=== PATIENT | female | born 1995 | race Caucasian/White ===

== ENCOUNTER 2024-05-14 15:39 | Emergency (ER) | payer MEDICAID, SELFPAY ==
[2024-05-14 16:01] VITALS: BP 125/94; PULSE 94; RESP 18; TEMP 37; O2SAT 100; BMI 24.2
--- NOTE | 2024-05-14 16:01 | ED.GENADULT ---
HPI - General Adult General Chief complaint: Urogenital-Female Stated complaint: vaginal itchiness Related Data Allergies Allergy/AdvReac Type Severity Reaction Status Date / Time No Known Allergies Allergy Verified 05/14/24 16:04 [facility] Social History Social History Advance Directives: No Advance Directives Information Provided: No Do you have a plan to hurt others: No Plan Physical Exam ED Vital Signs: BMI result Body Mass Index 24.2 Course Course Course Narrative: This is a rapid medical exam performed by Maksim Oakley NP: Additional HPI, ROS, PE not included below will be deferred to primary provider. Patient is a 29-year-old female presenting with complaint of vaginal itching, states she was given an appoitment for the but can't wait that long. Denies pain or discharge. States she has a rash which is spreading to her legs. Symptoms x 4 days. Unable to visualize in triage due to privacy concerns. Denies recent intercourse. Denies fevers. Patient is awake, A+Ox3, in no acute distress, lungs clear throughout, RRR, ambulating independently with steady gait. Plan: will need pelvic exam, swabs ordered Discharge Plan Discharge Clinical Impression: Eloped from emergency department Patient Disposition: Left W/O Completing Treatment Discharge Date/Time: 05/14/24 21:43
== END 2024-05-14 21:43 | disposition left against medical advice (07) ==
LOC: HO.ED 21:41
PROVIDERS: Emergency Provider Emergency Medicine
DX: L29.2 Pruritus vulvae (principal)
CPT/HCPCS: 99281

== ENCOUNTER 2024-07-28 15:55 | Outpatient (REF) | payer MEDICAID, SELFPAY ==
--- NOTE | 2024-07-28 15:59 | PFT_ITS ---
Flows: FEV1: 98 % of predicted at 3.23 L FVC: 95 % of predicted at 3.75 L FEV1/FVC: 86 % Bronchodilator response: Absent Volumes: Total lung capacity: 87 % of predicted at 4.63 L Residual volume: 82 % of predicted at 1.00 L Slow vital capacity: 88 % of predicted at 3.64 L Expiratory reserve volume: 135 % of predicted at 1.83 L Diffusion capacity: Normal Impression: No obstructive or restrictive ventilatory defect. No bronchodilator response. Normal pulmonary function test. MTDD
[2024-07-28 16:34] VITALS: PULSE 78; O2SAT 100
--- OUTSIDE RECORDS SUMMARY | 2024-07-28 17:42 | XMS_ITS | Encounter Summary ---
Author Organization [employer] [facility] Address [address] 7[address] [place] [address] Care Team Providers Care Gold Layer Name Role Phone Gladys Rao MD Primary Care Provider + Encounter Details Date Type Department Care Team (Late st Contact Info) Description 07/23/2024 Population Health Risk Score [facility] ([facility] Department [address] [place] [address] [phone] Provider, Population Health Generic Social History Tobacco Use Types Packs/Day Years Used Date Smoking Tobacco: Never Passive Smoke Exposure: Never Smokeless Tobacco: Never Alcohol Use Standard Drinks/Week Comments Never 0 (1 standard drink = 0.6 oz pur e alcohol) Depression Answer Date Recorded Patient Health Questionnaire-9 Score 0 06/22/2024 Patient Health Questionnaire-9 Score 0 06/22/2024 Last PHQ-9: Questionnaire Data Not on file 0 06/22/2024 Housing Stability Answer Date Recorded What is your housing situation today? I have edy candelario 06/22/[address] you li ve. Do you have problems with any of the following? None of the above 06/22/2024 Food Insecurity Answer Date Recorded Within the past 12 months, y ou worried that your food would run out before you got money to buy more: Never True 06/10/2024 Within the past 12 months,th e food you bought just didn't last and you didn't have enough money to get more: Never True Transportation Answer Date Recorded In the past 12 months, has l ack of transportation kept you from medical appts, meetings, work or from getting things needed for daily living? No 06/10/2024 Utilities Answer Date Recorded In the past 12 months, has t he electric, gas, oil or water company threatened to shut off services in your home? No 06/10/2024 Depression Answer Date Recorded Patient Health Questionnaire-2 Score 0 06/22/2024 Internet Access Answer Date Recorded Internet Access Q1 Yes 06/10/2024 Internet Access Q2 Not on file 06/10/2024 Comments No Sex and Gender Information Value Date Recorded Sex Assigned at Female 05/17/2024 9:31 AM EST Legal Sex Female 12:54 PM EDT Gender Identity Female 05/17/2024 9:31 AM EST Sexual Orientation Straight 05/17/2024 9: 31 AM EST documented as of this encounter Plan of Treatment Upcoming Encounters Date Type Department Care Team (Late st Contact Info) Description 08/13/2024 10:45 AM EDT Procedure Visit [facility] [address] [place] [address] Gladys Rao MD [address] [place] [phone] documented as of this encounter Visit Diagnoses Not on filedocumented in this encounter Additional Health Concerns Assessment Noted Time PHQ-9 Depression Total Score: 0 06/22/19 9:37 AM EST documented as of this encounter Care Teams Gold Layer Relationship Specialty Start Date End Date Gladys Rao MD [address] [place] [phone] PCP - General Internal Medicine 05/17/24 documented as of this encounter
--- OUTSIDE RECORDS SUMMARY | 2024-07-28 17:42 | XMS_ITS | Clinical Summary ---
Author Organization [employer] Address [address] [place] [address] 7t [place] [address] Care Team Providers Care Fingernail Sculptor Name Role Phone Gladys Rao MD Primary Care Provider + Allergies No known active allergies Medications No known medications Active Problems Problem Noted Date Diagnosed Date Visual disturbance 06/22/2024 Assessment & Plan (06/22/2024 10:30 AM EST): Refer to eye clinic. Mild intermittent asthma without complication Assessment & Plan (06/22/2024 10:30 AM EST): Seems to be well controlled, will order PFTs. Agreed to Influenza immunization. FU at next appointment with symptoms diary and see if she needs additional treatment. Preventative health care 06/22/2024 Assessment & Plan (06/22/2024 10:29 AM EST): Will order blood work and schedule pap smear with me. Skin lesion 05/25/2024 Overview (05/25/2024): Likely Molluscum versus Warts - Frozen with Liquid Nitrogen 05/25/24 Assessment & Plan (05/25/2024 10:28 AM EST): Likely Molluscum versus Warts - Frozen with Liquid Nitrogen 05/25/24 Folliculitis depilans 05/17/2024 Assessment & Plan (06/22/2024 10:28 AM EST): Resolved. Assessment & Plan (05/17/2024 11:54 AM EST): Avoid shaving that are for at least 1 mo, avoid depilatory creams. Take Duricef x 5d Unprotected sexual intercourse 05/17/2024 Assessment & Plan (05/17/2024 11:54 AM EST): Advised to use condom with future new partners. Will do STI testing FU w new PCP Mastalgia 05/17/2024 Assessment & Plan (06/22/2024 10:30 AM EST): Most likely related to hormonal changes during menstruation, pt will take Ibuprofen PRN x 1 week prior to menstrual bleeding. Assessment & Plan (05/17/2024 11:56 AM EST): test is neg today Advised to keep sxs diary and fu with new PCP Encounters Date Type Department Care Team Description 07/23/2024 [address] Health Risk Score [facility] () Department [address] [place] [address] [phone] Provider, Population Health Generic 06/22/2024 9:30 AM EST Office Visit [facility] [address] [place] [phone] Gladys Rao MD Folliculitis depilans (Primary Dx); Mastalgia; Visual disturbance; Mild intermittent asthma without complication; Preventative health care; Encounter for immunization 06/22/2024 Travel 06/18/2024 Telephone [facility] [address] [place] [phone] Lindy Vilchis MA Chart prep 06/10/2024 Patient Outreach [facility] [address] [place] [phone] Gladys Rao MD Care Coordination (CHW outreach for SDOH housing search-referral completed ) 06/10/2024 Patient Outreach [facility] [address] [place] [phone] Gladys Rao MD Pre-visit Planning (SDOH screening negative and tobacco screening negative) 05/25/2024 9:20 AM EST Office Visit [facility] [address] [place] [phone] Babita Williamson MD Skin lesion (Primary Dx) 05/18/2024 Telephone [facility] [address] [place] [address] Audrey Mckinney RN 05/17/2024 10:40 AM EST Office Visit [facility] [address] [place] [address] Gladys Rao MD Folliculitis depilans (Primary Dx); Unprotected sexual intercourse; Mastalgia from Last 3 Months Immunizations Name Administration Dates Next Due Influenza, seasonal, injectable, preservative fr ee 06/22/2024 Tdap 06/22/2024 Social History Tobacco Use Types Packs/Day Years Used Date Smoking Tobacco: Never Passive Smoke Exposure: Never Smokeless Tobacco: Never Tobacco Cessation:Counseling Given: Not Answered Alcohol Use Standard Drinks/Week Comments Never 0 (1 standard drink = 0.6 oz pur e alcohol) Depression Answer Date Recorded Patient Health Questionnaire-9 Score 0 06/22/2024 Patient Health Questionnaire-9 Score 0 06/22/2024 Last PHQ-9: Questionnaire Data Not on file 0 06/22/2024 Housing Stability Answer Date Recorded What is your housing situation today? I have edyharshad candelario 06/22/[address] you [...] Orientation Straight 05/17/2024 9: 31 AM EST Last Filed Vital Signs Vital Sign Reading Time Taken Comments Blood Pressure 116/74 06/22/2024 9:36 AM EST Pulse 82 06/22/2024 9:36 AM EST Temperature 37.1 ??C (98.8 ??F) 06/22/2024 9:36 AM ES T Respiratory Rate 18 06/22/2024 9:36 AM EST Oxygen Saturation 100% 06/22/2024 9:36 AM EST Inhaled Oxygen Concentration - - Weight 69.3 kg (152 lb 12.8 oz) 06/22/2024 9:36 AM EST Height 165.1 cm (5' 5 ) 06/22/2024 9:36 AM EST Body Mass Index 25.43 06/22/2024 9:36 AM EST Plan of Treatment Upcoming Encounters Date Type Department Care Team (Late st Contact Info) Description 08/13/2024 10:45 AM EDT Procedure Visit [facility] [address] [place] [phone] Gladys Rao MD [address] [place] [address] Health Maintenance Due Date Last Done Comments Family Planning (PISQ) 2008 Hepatitis B Vaccines (1 of 3 - 19+ 3-dose series) 2012 Pneumococcal Vaccine: Pediatrics (0 to 5 Years) and At-Risk Patients (6 to 49) Years) (1 of 2 - PCV) 2012 Pap Smear 2014 Cervical Cancer Screening 2023 HPV/Cotest 2023 HPV Vaccines (2 - 3-dose SCD M series) 08/14/2023 07/17/2023 COVID-19 Vaccine ( - 2023-2 5 season) 2024 Alcohol/Substance Use Screening 06/22/2025 06/22/2024 Depression Screening 06/22/2025 06/22/2024, 06/22/2024 SDOH Screening 06/22/2025 06/22/2024 Tobacco Screening 06/22/2025 06/22/2024 DTaP/Tdap/Td Vaccines (2 - T d or Tdap) 06/22/2034 06/22/2024 Zoster Vaccines (1 of 2) 2043 RSV Patients and Patients Aged 60 years or older (1 - 1-dose 75+ series) 2068 HIV Screening Completed 05/17/2024 Hepatitis C Screening Completed 05/17/2024 Influenza Vaccine Completed 06/22/2024 HIB Vaccines Aged Out No longer eligi ble based on patient's age to complete this topic Hepatitis A Vaccines Aged Out No long er eligible based on patient's age to complete this topic IPV Vaccines Aged Out No longer eligi ble based on patient's age to complete this topic Meningococcal Vaccine Aged Out No rosalia karime eligible based on patient's age to complete this topic RSV under 20 months Aged Out No longe r eligible based on patient's age to complete this topic Rotavirus Vaccines Aged Out No longer eligible based on patient's age to complete this topic Procedures Procedure Name Priority Date/Time Associated Diagnosis Comments T-SPOT(R).TB Routine 05/17/2024 11:21 AM EST Unprotected sexual intercourse SYPHILIS SCREEN Routine 05/17/2024 11:21 AM EST Unprotected sexual intercourse HIV 1/2 ANTIGEN/ANTIBODY, FOURTH GENERATION W/RFL Routine 05/17/2024 11:21 AM EST Unprotected sexual intercourse HEPATITIS PANEL, GENERAL Routine 05/17/2024 11:21 AM EST Unprotected sexual intercourse POCT , URINE Routine 05/17/2024 10:58 AM EST Unprotected sexual intercourse CHLAMYDIA/N. GONORRHOEAE RNA, TMA, UROGENITAL Routine 05/17/2024 10:50 AM EST Unprotected sexual intercourse BACTERIAL VAGINOSIS PANEL Routine 05/17/2024 10:50 AM EST Unprotected sexual intercourse from Last 3 Months Results * Syphilis Screen (05/17/2024 11:21 AM EST) Syphilis Screen Nonreactive Nonreactive [facility] Blood 05/17/2024 11:2 1 AM EST 05/17/2024 1:45 PM EST Gladys Rao MD LAB BLOOD ORDERABLES Fin al Result [facility] [address] [place] [phone] * T-SPOT??.TB (05/17/2024 11:21 AM EST) Pathologist [facility] T Spot TB Negative Negative [facility] Comment:A negative test resu lt does not exclude the possibilityof exposure to or infection with Mycobacteriumtuberculosis (M. tuberculosis). Patients with recentexposure to TB infected individuals exhibiting anegative T-SPOT.TB result should be considered forretesting within 6 weeks or if other relevant clinicalsymptoms indicate. Results from T-SPOT.TB testing mustbe used in conjunction with each individual'sepidemiological history, current medical status,and results of other diagnostic evaluations.The T-SPOT.TB test is qualitative and results arereported as positive, borderline, or negative, giventhat the test controls perform as expected. In linewith the Centers for Disease Control and Prevention's2010 recommendation to report quantitative measurementsalongside the qualitative result, the laboratoryprovides spot counts for informational purposes only.The T-SPOT.TB test should not be interpreted as aquantitative test. TS PANEL A 1 [facility] TS PANEL B 1 [facility] Negative Control Passed [facility] Positive Control Passed [facility] Comment:For additional infor mation, please refer tohttp://education.[employer]/faq/VYT012(This link is being provided for informational/educational purposes only.)THIS TEST WAS PERFORMED AT:[facility] [id number] [place] [id number] PENA MD,PHD 05/17/2024 11:2 1 AM EST 05/17/2024 1:45 PM EST Gladys Rao MD LAB BLOOD ORDERABLES Fin al Result Performing Organization Address [facility] Co de Phone Number [facility] [address] [place] [phone] * Hepatitis Panel, General (05/17/2024 11:21 AM EST) Hepatitis A IgM Nonreactive Nonreactive [facility] Comment:IgM antibodies to IRWIN V not detected; does not exclude earlyacute or recovered HAV infection. ~Hepatitis B Surface Antibody NONREACTIVE Nonreactive [facility] Comment:Nonreactive: < 8.00 mIU/mL Hepatitis B Core Antibody Nonreactive Nonreactive [facility] Hepatitis C Antibody Nonreactive Nonreactive [facility] Comment:Antibodies to HCV no t detected; does not exclude early acuteHCV infection. Hepatitis B Surface Ag Negative Negative [facility] Blood 05/17/2024 11:2 1 AM EST 05/17/2024 1:45 PM EST Gladys Rao MD LAB BLOOD ORDERABLES Fin al Result Performing Organization Address [facility] de Phone Number [facility] [address] [place] [phone] * HIV-1/2 Antigen and Antibodies, Fourth Generation, with Reflexes (05/17/2024 11:21 AM EST) HIV AB/AG Nonreactive Nonreactive [facility] Comment:HIV-1 p24 Ag and/or HIV-1/HIV-2 Ab not detected.A test result that is nonreactive does not exclude thepossibility of exposure to or infection with HIV-1 and/orHIV-2. Nonreactive results in this assay for individualswith prior exposure to HIV-1 and/or HIV-2 may be due toantigen and antibody levels that are below the limit ofdetection of this assay.The Glam[employer] HIV Ag/Ab Combo assay result andsupplemental assay results should be interpreted inconjunction with the patient's clinical presentation,history and other laboratory results. If the results areinconsistent with clinical evidence, additional testing issuggested to confirm the result. Blood Venous blood specimen / Unknown 05/17/2024 11:21 AM EST 05/17/2024 1:45 PM EST Gladys Rao MD LAB BLOOD ORDERABLES Fin al Result [facility] [address] [place] [phone] * POCT , urine manually resulted (05/17/2024 10:58 AM EST) Preg Test, Ur Negative Negative, Indeterminate, None Detected, Invalid, Specimen unsatisfactory for evaluation, Weakly Positive Urine 05/17/2024 10:5 8 AM EST Gladys Rao MD POINT OF CARE TEST ENTER /EDIT ORDERABLES Final Result * (ABNORMAL) Bacterial Vaginosis (05/17/2024 10:50 AM EST) TRICHOMONAS VAGINALIS DETECTION BY PCR NOT DETECTED Not Detect [facility] BACTERIAL VAGINOSIS DETECTION BY PCR POSITIVE(A) Negative [facility] Comment:The BV organism targ ets of the Xpert Xpress MVP test can becommensal in women; Xpert Xpress MVP positive results forbacterial vaginosis should be considered in conjunction withother clinical and patient information to determine thedisease status. Organisms that are not detected by the XpertXpress MVP test have also been reported to be associatedwith BV and aerobic vaginitis.The Xpert Xpress MVP test performance has not been evaluatedin patients under the age of 14. TEA GROUP DETECTION BY PCR NOT DETECTED Not Detect [facility] Tea glab krusei PCR NOT DETECTED Not Detect [facility] Swab Vaginal structure / Unknown 05/17/2024 10:50 AM EST 05/17/2024 1:16 PM EST us Gladys Rao MD LAB MICROBIOLOGY - GENER AL ORDERABLES Final Result [facility] [address] [place] [phone] * Chlamydia/N. Gonorrhoeae RNA, TMA, Urogenitial (05/17/2024 10:50 AM EST) CT PCR NOT DETECTED Not Detect. [facility] Comment:A not detected test result does not exclude the possibilityof infection because test results can be affected byimproper specimen collection, concurrent antibiotic therapy,or the number of organisms in the specimen which may bebelow the sensitivity of the test. As with many diagnostictests, results from the Xpert CT/NG assay should beinterpreted in conjunction with other laboratory andclinical data available to the clinician.Xpert CT/NG performance has not been evaluated in patientsless than 14 years of age. The assay should not be used forthe evaluationof suspected sexual abuse or for other medico-legalindications. Additional testing is recommended in anycircumstance when false positive or false negative resultscould lead to adverse medical, social or psychologicalconsequences. NG PCR NOT DETECTED Not Detect. [facility] Comment:A not detected test result does not exclude the possibilityof infection because test results can be affected byimproper specimen collection, concurrent antibiotic therapy,or the number of organisms in the specimen which may bebelow the sensitivity of the test. As with many diagnostictests, results from the Xpert CT/NG assay should beinterpreted in conjunction with other laboratory andclinical data available to the clinician.Xpert CT/NG performance has not been evaluated in patientsless than 14 years of age. The assay should not be used forthe evaluationof suspected sexual abuse or for other medico-legalindications. Additional testing is recommended in anycircumstance when false positive or false negative resultscould lead to adverse medical, social or psychologicalconsequences. Swab (Vaginal Swab) 05/17/2024 10:50 AM EST 05/17/2024 1:16 PM EST Narrative [facility] - 05/17/2024 4:19 PM EST Vaginal Gladys Rao MD LAB MICROBIOLOGY - GENER AL ORDERABLES Final Result [facility] [address] [place] [phone] from Last 3 Months Insurance [employer] C3 Care Teams Fingernail Sculptor Relationship Specialty Start Date End Date Gladys Rao MD [address] [place] [phone] PCP - General Internal Medicine 05/17/24
--- OUTSIDE RECORDS SUMMARY | 2024-07-28 17:42 | XMS_ITS | Data Portability ---
Author Organization [facility] [place] [place] [facility] Address [address] [address] Assessment No assessment recorded. Plan of Treatment Reminders Order Date Submit Date Provider Last Modified By Organization Details Last Modified Time Details Appointments None record ed. Lab pregna ncy test, urine 2023 024 [facility], [address] [place], [address], 4 14:05:04 NG RNA, qual, PCR, unspec ified specim en 2023 024 OTTONIEL [facility], [address] [place], [address], 4 04:08:10 CT RNA, qual, PCR, unspec ified specim en 2023 024 OTTONIEL [facility], [address] [place], [address], 4 04:08:09 cytolo gy report , thin prep, smear or scrapi ng, cervic al or vagina l 2023 024 O[facility]EL [facility], [address] [place], [address], 4 04:07:42 pregna ncy test, urine 2023 024 OTTONIEL Fraser, [address] [place], [address], 4 15:54:14 urinal ysis, dipsti ck 2023 024 OTTONIEL Fraser, [address] [place], [address], 4 15:59:28 cultur e, urine 2023 024 [email or web address] [facility], [address] [place], [address], 4 14:01:01 CT RNA, qual, PCR, unspec ified specim en 2023 024 [email or web address] [facility], [address] [place], [address], 4 14:01:35 NG RNA, qual, PCR, unspec ified specim en 2023 024 [email or web address] [facility], [address] [place], [address], 4 14:02:04 tricho monas vagina lis RNA 2023 024 [email or web address] [facility], [address] [place], [address], 4 14:02:23 Referral gyneco logist referr al 2023 James [email or web address] [place] [facility], [address] [place], [address], 4 11:05:33 urolog ist referr al 2023 024 [email or web address] Ant Lowery MD, [address] [place], [address], 4 11:05:33 emerge ncy medici ne referr al - 28-yea r-old female presen ts for a 2-day histor y of lower abdomi nal pain with associ ated abnorm al vagina l bleedi ng and lower pelvic pain and fevers . Prior histor y of gonorr hea treate d with Roceph in. Pregna ncy test in house negati ve. Severe pain on palpat ion concer n for possib le ectopi c or kidney stone 2023 024 [email or web address] [facility], [address], [place], [address], 15:52:12 Procedures None record ed. Surgeries None record ed. Imaging US, pelvis , transa bdomin al + transv aginal - abnorm al uterin e bleedi ng 2023 024 [facility], [address] [place] [address], [address], 4 10:35:34 CT, abdome n + pelvis , w/ contra st - hematu sonia/lo wer abd pain, r/o kidney stone [address], [address], 4 10:35:24 Medication Orders predni solone acetat e 1 % eye drops, suspen joao [email or web address] [id number], [address] [place], [address], 4 11:04:25 Patient TargetsNo targets recorded. Patient Instructions Encounter Date Encounter Id Patient Instructions Last Modified By Organization Details Last Modified Time 06/02/2023 [id number] safer sex: care instructions Not available 06/02/2023 12:03:12 relaciones sexuales m? ? ?s seguras: instrucciones de cuidado - [safer sex: care instructions] Not available 06/02/2023 12:03:12 prueba de vih: instrucciones de cuidado - [HIV testing: care instructions] Not available 06/02/2023 12:03:12 HIV testing: car e instructions Not available 06/02/2023 12:03:11 07/09/2023 [id number] abnormal Pap sherry t: care instructions tmantle Not available 07/15/2023 18:05:11 HPV (human papillomavirus) vaccine: what you need to know tmantle Not available 07/09/2023 13:36:44 human papillomavirus (HPV): care instructions tmantle Not available 07/09/2023 13:36:44 07/17/2023 [id number] HPV (human papillomavirus) vaccine: what you need to know tmantle Not available 07/17/2023 08:36:48 Reason for Referral Emergency Medicine Referral for Abnormal uterine bleeding 28-year-old female presents for a 2-day history of lower abdominal pain with associated abnormal vaginal bleeding and lower pelvic pain and fevers. Prior history of gonorrhea treated with Rocephin. test in house negative. Severe pain on palpation concern for possible ectopic or kidney stone Referring Physician: Ibeth Jerome [facility], Encounter Date: 06/02/2023 Java Sdet Referral for Pa in in pelvis pelvic pain Referring Physician: Ibeth Jerome [facility], Encounter Date: 06/05/2023 Urologist Referral for Blood in urine hematuria Referring Physician: Ibeth Jerome [facility], Encounter Date: 06/05/2023 Results Created Date Observation Date Name Description Value Unit Range Abnormal Flag Note LastModifiedBy Organization Detail LastModifiedTime 06/02/19 24 06/03/2023 NO TEST INDIC ATED . Commen t A urine was recei serafin with no test indic ated Not Available [facility] ([facility]) [address], [place], [address], 06/03/2023 16:17:18 06/02/19 24 06/03/2023 NO TEST INDIC ATED dear doctor, Commen t The requi sitio n we recei serafin for the above patie nt has no test indic ated on the reque st form for one or more of the speci mens submi tted. [place] s requi res a writt en and kaveh d reque st be forwa rded to the testi ng labor atory follo wing the verba l order of a labor atory test. Date: ___ ICD Diagn osis Code( s):__ _ Physi britany or Autho rized Desig nee Signa ture: Your signa ture confi galina your order of the test( s) liste d Requi red test name( s):__ _ Requi red test numbe r(s): _ Pleas e provi de reque sted infor mateliecer n and fax to [phone] to exped ite testi ng. Not Available [facility] ([facility]) [address], [place], [address], 06/03/2023 16:17:18 06/02/19 24 06/08/2023 TRICH VAG BY NEO trich vag by NEO Negati ve negati ve Not Available [facility] ([facility]) [address] [facility] [address], [place], [address], 06/09/2023 04:06:32 06/02/19 24 06/04/2023 URINE CULTU RE, HAIR NE urine culture, routine Final report Not Available [facility] ([facility]) [address] [facility] [address], [place], [address], 06/09/2023 04:06:33 06/02/19 24 06/04/2023 URINE CULTU RE, HAIR NE result 1 No growth Not Available [facility] ([facility]) [address] [facility] [address], [place], [address], 06/09/2023 04:06:33 06/02/19 24 06/03/2023 CHLAM YDIA TRACH OMATI S, NEO chlamydia trachomatis, NEO Negati ve negati ve Not Available [facility] ([facility]) [address] [facility] [address], [place], [address], 06/09/2023 04:06:33 06/02/19 24 06/03/2023 NEISS ERIA GONOR RHOEA E, NEO neisseria gonorrhoeae, NEO Negati ve negati ve Not Available [facility] ([facility]) [address] [facility] [address], [place], [address], 06/09/2023 04:06:33 06/02/19 24 06/02/2023 urina lysis , dipst ick Leukocytes negati ve Not Available [address], [address], 06/02/2023 11:46:04 06/02/19 24 06/02/2023 urina lysis , dipst ick Nitrite negati ve Not Available [address], [address], 06/02/2023 11:46:04 06/02/19 24 06/02/2023 urina lysis , dipst ick Urobilinogen 0.2 Not Available [address], [address], 06/02/2023 11:46:04 06/02/19 24 06/02/2023 urina lysis , dipst ick Protein 100 Not Available [address], [address], 06/02/2023 11:46:04 06/02/19 24 06/02/2023 urina lysis , dipst ick pH 7.0 Not Available [address], [address], 06/02/2023 11:46:04 06/02/19 24 06/02/2023 urina lysis , dipst ick Blood large Not Available [address], [address], 06/02/2023 11:46:04 06/02/19 24 06/02/2023 urina lysis , dipst ick Specific Tyro 1.025 Not Available [address], [address], 06/02/2023 11:46:04 06/02/19 24 06/02/2023 urina lysis , dipst ick Ketone negati ve Not Available [address], [address], 06/02/2023 11:46:04 06/02/19 24 06/02/2023 urina lysis , dipst ick Bilirubin small Not Available [address], [address], 06/02/2023 11:46:04 06/02/19 24 06/02/2023 urina lysis , dipst ick Glucose negati ve Not Available [address] [place], [address], 06/02/2023 11:46:04 06/02/19 24 06/02/2023 urina lysis , dipst ick Appearance cloudy Not Available [facility] [address] [place], [address], 06/02/2023 11:46:04 06/02/19 24 06/02/2023 urina lysis , dipst ick Color red Not Available [address] [place], [address], 06/02/2023 11:46:04 06/02/19 24 06/02/2023 pregn weston test, urine HCG negati ve Not Available [address], [address], 06/02/2023 12:02:31 06/05/19 24 06/07/2023 URINE CULTU RE, ROUTI NE urine culture, routine Final report Not Available [facility] ([facility]) [address] [place], [address], 06/07/2023 04:08:31 06/05/19 24 06/07/2023 URINE CULTU RE, ROUTI NE result 1 COMMEN T Cultu re shows less than 10,00 0 colon y formi ng units of bacte sonia per aileen liter of urine . This colon y count is not gener ally consi dered to be clini magdalena signi fican t. Not Available [facility] ([facility]) [address] [place], [address], 06/07/2023 04:08:31 06/23/19 24 06/24/2023 CHLAM YDIA TRACH OMATI S, NEO chlamydia trachomatis, NEO Negati ve negati ve Not Available [facility] ([facility]) [address] [place], [address], 06/25/2023 04:08:09 06/23/19 24 06/24/2023 NEISS ERIA GONOR RHOEA E, NEO neisseria gonorrhoeae, NEO Negati ve negati ve Not Available [facility] ([facility]) [address] [facility] [address], [place], [address], 06/25/2023 04:08:09 06/23/19 24 06/24/2023 IGP, APTIM A HPV, RFX 16/18 ,45 HPV aptima Positi ve negati ve abnormal This nucle ic acid ampli ficat ion test detec ts fourt een high- risk HPV types (16,1 8,31, 33,35 ,39,4 5,51, 52,56 ,58,5 9,66, 68) witho ut diffe renti ation . Not Available [facility] ([facility]) [address] [facility] [address], [place], [address], 06/28/2023 04:07:42 06/23/19 24 06/26/2023 IGP, APTIM A HPV, RFX 16/18 ,45 interpretati on NILM NEGAT JORDY FOR INTRA EPITH ELIAL LESIO N OR MALIG LILIBETH . Not Available [facility] ([facility]) [address] [facility] [address], [place], [address], 06/28/2023 04:07:42 06/23/19 24 06/26/2023 IGP, APTIM A HPV, RFX 16/18 ,45 category: NIL Negat jordy for Intra epith elial Lesio n Not Available [facility] ([facility]) [address] [place], [address], 06/28/2023 04:07:42 06/23/19 24 06/26/2023 IGP, APTIM A HPV, RFX 16/18 ,45 infection: BVG PREDO MINAN CE OF COCCO BACIL LI CONSI STENT WITH SHIFT IN VAGIN AL REBECCA IS PRESE NT. Not Available [facility] ([facility]) [address] [place], [address], 06/28/2023 04:07:42 06/23/19 24 06/26/2023 IGP, APTIM A HPV, RFX 16/18 ,45 adequacy: SECNI Satis facto ry for evalu ation . No endoc ervic al compo nent is ident ified . Not Available [facility] ([facility]) [address] [place], [address], 06/28/2023 04:07:42 06/23/19 24 06/26/2023 IGP, APTIM A HPV, RFX 16/18 ,45 clinician provided ICD10: Ike molina Z12.4 Z11.3 Not Available [facility] ([facility]) [address] [place], [address], 06/28/2023 04:07:42 06/23/19 24 06/26/2023 IGP, APTIM A HPV, RFX 16/18 ,45 performed by: Ike ramsey, Cytot bell molina (ASCP ) Not Available [facility] ([facility]) [address] [place], [address], 06/28/2023 04:07:42 06/23/19 24 06/26/2023 IGP, APTIM A HPV, RFX 16/18 ,45 note: Ike molina The Pap smear is a scree patrick test desig hussein to aid in the detec tion of melquiades ligna nt and malig nant condi tions of the uteri ne cervi x. It is not a diagn ostic proce dure and shoul d not be used as the sole means of detec ting cervi gino cance r. Both false -posi tive and false -nega tive repor ts do occur . Not Available [facility] ([facility]) [address] [place], [address], 06/28/2023 04:07:42 06/23/19 24 06/26/2023 IGP, APTIM A HPV, RFX 16/18 ,45 test methodology: Ike Brasher liqui d based ThinP rep(R ) pap test was erika savage with the use of an image guide madonna yung Not Available [facility] ([facility]) [address] [facility] [address], [place], [address], 06/28/2023 04:07:42 06/23/19 24 06/26/2023 IGP, APTIM A HPV, RFX 16/18 ,45 HPV genotype reflex Commtadeo Zhaote sonia met, see HPV Genot ype resul ts. Not Available [facility] ([facility]) [address] [facility] [address], [place], [address], 06/28/2023 04:07:42 06/23/19 24 06/27/2023 IGP, APTIM A HPV, RFX 16/18 ,45 HPV genotype 16 Negati ve negati ve Not Available [facility] ([facility]) [address] [facility] [address], [place], [address], 06/28/2023 04:07:42 06/23/19 24 06/27/2023 IGP, APTIM A HPV, RFX 16/18 ,45 HPV genotype 18,45 Negati ve negati ve Not Available [facility] ([facility]) [address] [place], [address], 06/28/2023 04:07:42 06/23/19 24 06/23/2023 pregn weston test, urine HCG negati ve Not Available [place] [facility] [facility], [place], [address], 06/23/2023 09:38:41 Result Notes None recorded. 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 Active 2021 Myrna Elliott null, [facility] 4 18:21:39 Vaginal discharg e 193137813 Active 2021 Myrna grant, [facility] 4 18:21:39 Bilatera l pinguecu la of eyes 92059565533 9106 Active 2022 Myrna Elliott null, [facility] 4 18:21:39 Blood in urine 43625415 Active 2023 Myrna grant, [facility] 4 18:21:39 Abnormal uterine bleeding 38135008888 100 Completed 202306/23/2023 Removal Reason: resolved Myrna grant, [facility] 4 18:21:39 Pain in pelvis 06687868 Completed 202306/23/2023 Removal Reason: resolved Myrna grant, [facility] 4 18:21:39 Microsco pic hematuri a 610094797 Active 2023 Myrna grant, [facility] 4 18:21:39 Abnormal uterine bleeding 28905645237 100 Active 2023 Myrna grant, [facility] 4 18:21:39 Pain in pelvis 06530539 Active 2023 Myrna grant, [facility] 4 18:21:39 Human papillom a virus infectio n 360728922 Active 202306/23/23 pap NL, HPV+ recommen dation co-testi ng 12 months Myrna grant, [place] - [facility] 4 18:21:39 Abnormal cervical Papanico laou smear with human papillom avirus deoxyrib onucleic acid detected 246617760 Active 2023 Myrna grant, [facility] 18:21:39 Problem Notes None recorded. Procedures Surgical History Date Name Laterality Status Provider Name and Address Organization Details Recorded Time 06/23/19 24 Date of Last Pap Smear completed Angelika Yeung [facility] 07/09/2023 11:05:21 section completed [facility] 01/15/2023 14:22:22 Breast augmentation w/implt completed [facility] 01/15/2023 14:22:31 Imaging Results None recorded. Procedure Notes None recorded. Medical Equipment None Reported. Allergies No known drug allergies Medications Name Sig Start Date Stop Date Status Note LastModified by Organization Details LastModified Time doxycycline hyclate 100 mg capsule Take 1 capsule twice a day by oral route. 07/09 completed Not Available Not Available Not Available fluconazole 150 mg tablet Take 1 tablet by oral route. active Not Available Not Available No t Available hydrocodone 5 mg-acetamin ophen 325 mg tablet TAKE 2 TABLETS BY MOUTH EVERY 6 (SIX) HOURS IF NEEDED FOR SEVERE PAIN FOR UP TO 7 DAYS. 01/15 completed Not Available Not Available Not Available ondansetron HCl 4 mg tablet TAKE 1 TABLET BY MOUTH TWICE DAILY NEEDED FOR NAUSEA 01/15 completed Not Available Not Available Not Available ciprofloxac in 500 mg tablet TAKE 1 TABLET BY MOUTH TWICE DAILY FOR 7 DAYS 01/15 completed Not Available Not Available Not Available sulfamethox azole 800 mg-trimetho prim 160 mg tablet TAKE 1 TABLET BY MOUTH TWICE DAILY FOR 7 DAYS 01/15 completed Not Available Not Available Not Available ketorolac 10 mg tablet TAKE 1 TABLET BY MOUTH EVERY 6 HOURS NEEDED FOR PAIN 06/05 completed Not Available Not Available Not Available oxycodone-a cetaminophe n 5 mg-325 mg tablet TAKE 1 TO 2 TABLETS BY MOUTH EVERY 4 TO 6 HOURS NEEDED POST SURGERY PAIN 01/15 completed Not Available Not Available Not Available prednisolon e acetate 1 % eye drops,suspe nsion INSTILL 1 DROP INTO BOTH EYES 2 TIMES PER DAY FOR 1 WEEK 07/09 completed Not Available Not Available Not Available cephalexin 500 mg capsule TAKE 1 CAPSULE (500 MG TOTAL) BY MOUTH IN THE MORNING AT AT NOON AND BEFORE BEDTIME FOR 7 DAYS 01/15 completed Not Available Not Available Not Available neomycin-po lymyxin-dex ameth 3.5 mg/mL-10,00 0 unit/mL-0.1 % eye drops ADMINISTE R 1 DROP INTO BOTH EYES 4 TIMES A DAY FOR 10 DAYS. 01/15 completed Not Available Not Available Not Available ondansetron 4 mg disintegrat ing tablet TAKE 1 TABLET BY MOUTH EVERY 8 HOURS NEEDED FOR NAUSEA 07/09 completed Not Available Not Available Not Available naproxen 500 mg tablet active Not Available Not Available Not Available doxycycline 100mg capsule and topical skin cleanser no.19 06/02 completed Not Available Not Available Not Available ID NOW COVID-19 Test Kit TEST DIRECTED active Not Available Not Available No t Available Vitals Date Recorded Body height Body mass index (BMI) Body weight Body temperature Heart rate Respiratory rate Oxygen saturation Oxygen saturation in Arterial blood by Pulse oximetry Systolic blood pressure Diastolic blood pressure Provider Name and Address Organization Details Last Updated DateTime 4 165.1 cm 24.9 kg/m2 61349.0 6 g 97.7 [degF] 80 /min 16 /min 98 % 98 % 97 mm[Hg] 67 mm[Hg] Cristopher Ennisjudy [employer] 4 11:30:33 Date Recorded Body height Body mass index (BMI) Body weight Body temperature Heart rate Respiratory rate Oxygen saturation Oxygen saturation in Arterial blood by Pulse oximetry Systolic blood pressure Diastolic blood pressure Provider Name and Address Organization Details Last Updated DateTime 4 165.1 cm 24.8 kg/m2 55031.9 6 g 98.3 [degF] 74 /min 15 /min 98 % 98 % 100 mm[Hg] 73 mm[Hg] Francisco Godoy t [employer] 4 11:23:52 Date Recorded Body height Body mass index (BMI) Body weight Body temperature Heart rate Respiratory rate Oxygen saturation Oxygen saturation in Arterial blood by Pulse oximetry Systolic blood pressure Diastolic blood pressure Provider Name and Address Organization Details Last Updated DateTime 4 165.1 cm 24.9 kg/m2 94324.4 2 g 98.7 [degF] 81 /min 16 /min 99 % 99 % 115 mm[Hg] 80 mm[Hg] Angelika Yeung [place] [employer] 4 08:26:00 Date Recorded Body height Body mass index (BMI) Body weight Body temperature Heart rate Respiratory rate Oxygen saturation Oxygen saturation in Arterial blood by Pulse oximetry Systolic blood pressure Diastolic blood pressure Systolic blood pressure Diastolic blood pressure Provider Name and Address Organization Details Last Updated DateTime 4 165.1 cm 24.8 kg/m2 19704.2 6 g 97.9 [degF] 70 /min 16 /min 98 % 98 % 135 mm[Hg] 86 mm[Hg] 126 mm[Hg] 80 mm[Hg] [facility] [employer] [facility] 4 11:07:55 Date Recorded Body height Body mass index (BMI) Body weight Body temperature Heart rate Respiratory rate Oxygen saturation Oxygen saturation in Arterial blood by Pulse oximetry Systolic blood pressure Diastolic blood pressure Provider Name and Address Organization Details Last Updated DateTime 4 165.1 cm 24.9 kg/m2 84827.1 4 g 98.7 [degF] 73 /min 18 /min 95 % 95 % 104 mm[Hg] 70 mm[Hg] [facility] [employer] 4 09:11:47 Social History Question Answer Notes LastModified by Deep Ninesat ion Details LastModified Time Tobacco Smoking Status Never Smoker Francisco Irqa [place], [place] [employer] 06/05/2023 11:28:12 Do You Have An Advance Directive? No Information not available 01/15/2023 Is Your Home Air Conditioned? Yes Information not available 01/15/2023 What Is Your Level Of Alcohol Consumption? Occasional Information not available 06/05/2023 If You Are , What Was Your Level Of Alcohol Consumption Prior To ? None Information not available 01/15/2023 How Many Years Have You Consumed Alcohol? 7 Information not available 06/05/2023 Do You Wear A Helmet When Biking? No [email or web address] Information not available 01/15/2023 Are You Blind Or Do You Have Difficulty Seeing? No [email or web address] Information not available 01/15/2023 Is Blood Transfusion Acceptable In An Emergency? Yes [email or web address] Information not available 01/15/2023 What Is Your Level Of Caffeine Consumption? None Information not available 01/15/2023 Are You A Caregiver? Yes [email or web address] Information not available 01/15/2023 What Type Of Sales Office Manager Do You Use? None [email or web address] Information not available 01/15/2023 What Is Your Code Status? Full Code [email or web address] Information not available 06/02/2023 In The 14 Days Before Symptom Onset, Have You Had Close Contact With A Laboratory-confir med COVID-19 While That Case Was Ill? No [email or web address] Information not available 01/15/2023 In The 14 Days Before Symptom Onset, Have You Had Close Contact With A Person Who Is Under Investigation For COVID-19 While That Person Was Ill? No [email or web address] Information not available 01/15/2023 Have You Been To An Area Known To Be High Risk For COVID-19? No [email or web address] Information not available 01/15/2023 Are You Currently Employed? No [email or web address] Information not available 01/15/2023 Are You Deaf Or Do You Have Serious Difficulty Hearing? No [email or web address] Information not available 01/15/2023 What Type Of Diet Are You Following? REGULAR Information not available 01/15/2023 Do You Have A Directive To Physicians? No [email or web address] Information not available 01/15/2023 Which Illicit Or Recreational Drugs Have You Used? Marijuana [email or web address] Information not available 07/09/2023 What Is The Highest Grade Or Level Of School You Have Completed Or The Highest Degree You Have Received? [id number] [email or web address] Information not available 01/15/2023 Do You Have An Electrostatic Air Filter? No [email or web address] Information not available 01/15/2023 How Many Days Of Moderate To Strenuous Exercise, Like A Brisk Walk, Did You Do In The Last 7 Days? 3 [email or web address] Information not available 01/15/2023 On Those Days That You Engage In Moderate To Strenuous Exercise, How Many Minutes, On Average, Do You Exercise? 1 Information not available 01/15/2023 Have There Been Any Changes To Your Family Or Social Situation? No [email or web address] Information no t available 01/15/2023 What Is The Fluoride Status Of Your Home? Unknown [email or web address] Information not available 01/15/2023 Are There Any Guns Present In Your Home? No Information not available 01/15/2023 Which Of Your Hands Is Dominant? Right [email or web address] Information not available 01/15/2023 Do You Have A Humidifier? No [email or web address] Information not available 01/15/2023 How Many Years Have You Used Illicit Or Recreational Drugs? 9 [email or web address] Information not available 07/09/2023 Where Do You Live? SingleLevelHouse [email or web address] Information not available 01/15/2023 How Long Have You Lived There? Yrs [email or web address] Information not available 01/15/2023 Do You Have A Medical Power Of [employer]? No [email or web address] Information not available 01/15/2023 Do You Have Moisture Problems In Your Home? No [email or web address] Information not available 01/15/2023 What Was The Date Of Your Most Recent Tobacco Screening? 07/09/2023 [email or web address] Information not available 07/09/2023 How Many Children Do You Have? 2 [email or web address] Information not available 01/15/2023 Do You Have An Out Of Hospital DNR? No Information not available 01/15/2023 Do You Have Any Pets? Yes Cat [email or web address] Information not available 01/15/2023 Do You Use Protection During Sex? No [email or web address] Information not available 01/15/2023 What Is Your Relationship Status? Single [email or web address] Information not available 01/15/2023 Do You Use Your Seat Belt Or Car Seat Routinely? Yes [email or web address] Information not available 01/15/2023 Are You Sexually Active? Yes [email or web address] Information not available 01/15/2023 Do You Have Smoke And Carbon Monoxide Detectors In Your Home? No [email or web address] Information not available 01/15/2023 Are You Passively Exposed To Smoke? No [email or web address] Information no t available 01/15/2023 Are There Any Smokers In Your House? No [email or web address] Information not available 01/15/2023 How Much Tobacco Do You Smoke? No [email or web address] Information not available 01/15/2023 Do You Participate In Social Media? Yes [email or web address] Information not available 01/15/2023 What Types Of Sporting Activities Do You Participate In? N/a Information not available 01/15/2023 Do You Feel Stressed (tense, Restless, Nervous, Or Anxious, Or Unable To Sleep At Night)? [id number] Information not available 06/05/2023 Do You Use Any Illicit Or Recreational Drugs? Yes [email or web address] Information not available 07/09/2023 Do You Use Sunscreen Routinely? No Information not available 01/15/2023 Has Tobacco Cessation Counseling Been Provided? No [email or web address] Information not available 01/15/2023 Have You Recently Traveled Abroad? No [email or web address] Information not available 01/15/2023 Have You Used IV Drugs? No [email or web address] Information not available 07/09/2023 Are You Currently In School? No [email or web address] Information not available 01/15/2023 Do You Have Any Dietary Restrictions? No [email or web address] Information not available 01/15/2023 Do You Or Have You Ever Used Any Other Forms Of Tobacco Or Nicotine? No [email or web address] Information not available 01/15/2023 Sex: Female Functional Status Question Answer Note LastModified by Organizat ion Details LastModified Time Do you have difficulty walking or climbing stairs? No [email or web address] Information not available 01/15/2023 Do you have transportation difficulties? No [email or web address] Information not available 01/15/2023 Are you able to walk? YESWOREST [email or web address] Information not available 01/15/2023 Do you have difficulty doing errands alone? No [email or web address] Information not available 01/15/2023 Are you able to care for yourself? Yes [email or web address] Information not available 01/15/2023 Do you have difficulty dressing or bathing? No [email or web address] Information not available 01/15/2023 What is your exercise level? Moderate [email or web address] Information not available 01/15/2023 Mental Status Question Answer Note LastModified by Organization D etails LastModified Time Do you have difficulty concentrating, remembering or making decisions? No [email or web address] Information no t available 01/15/2023 Family History Relationship Description Onset Age of this Age Resolved Age Notes LastModified by Organization Details LastModified Time Father No current problems or disability [email or web address] Not available 07/16 18:21:38 Mother No current problems or disability [email or web address] Not available 07/16 18:21:38 Brother Type 1 diabetes mellitus [email or web address] Not available 05/13 11:25:53 Maternal Grandmother Malignant tumor of pharynx [email or web address] Not available 05/13 11:26:19 Paternal Grandfather Malignant neoplasm of brain [email or web address] Not available 05/13 11:26:43 Medical History Condition Response Asthma Y Gynecological History Statement/Question Response Abnormal Pap Y Flow Moderate Date of Last Mammogram Date of LMP 07/07/2023 On BCP's at Conception? N STIs/STDs N HPV Vaccine N Duration of Flow (days) 5 Current Control Method Tubal Ligat ion Age at Menarche 11 Age at First Child 16 Frequency of Cycle (Q days) 26 Sexually Active? Y Menses Monthly Y Date of Last Pap Smear 06/23/2023 Sexual Problems? N Obstetrics History GPAL:G 2 P 2 0 0 2 Type Value Full Term 2 Living 2 Total 2 Immunizations Vaccine Type Date Status Note Provider Owen goyal and Address Organization Details Recorded Time HPV9 07/17/2023 completed Nasrin Gonzales APRN [address] [place], [address], [facility] 07/17/2023 14:22:12 Past Encounters Encounter ID Performer Location Encounter Start Date Encounter Closed Date Diagnosis/Indication Diagnosis SNOMED-CT Code Diagnosis ICD10 Code Diagnosis Note [id number] Myrna Elliott [place] [address] [place] [address] 05/31/2021 08:13:50 05/31/2021 09:40:24 Aftercare 320849949 Z51.89 will request [facility] records Pain in pelvis 51703002 R10.2 will request Hp records, pelvic u/s done at the Candidiasis of vagina 72 946062 B37.3 Screening for malignant neoplasm of cervix 784747001 Z12.4 Vaginal discharge 647989 006 N89.8 Discussed the various types of STDs, related symptoms and the potential consequenc es (including effects on fertility) of STD infections . Reviewed ways to limit exposure and prevention techniques . Body mass index 30+ - obesity 888110436 Z68.37 Diet, nutrition, exercise & activity level discussed. [id number] RUBINA Dennyya [address] [place] [address] 01/15/2023 13:56:29 01/15/2023 14:56:35 Bilateral pinguecula of eyes 4743332212 12526 H11.153 Body mass index 25-29 - overweight 429349467 Z68.29 Encouraged maintenanc e of a healthy weight with diet and exercise. Dietary ma nagement surveillance 509980222 Z71.3 Heart Healthy Diet Exercises education, guidance, and counseling 417189942 Z71.82 Advised to aim for 150 minutes of moderate-i ntensity aerobic activity Depression screening 171 014966 Z13.31 Annual Depression Screening negative Screening for alcohol abuse 299827121 Z13.39 Annual Alcohol Screening negative Mental [facility] screening 843244945 Z13.39 Annual Anxiety Screening negative [id number] DENICE [place] [address] [place] [address] 06/02/2023 11:17:30 06/02/2023 12:08:13 Blood in urine 13766171 R31.9 Testing in office showed severe hematuria however no obvious sign of UTI. Differenti al includes kidney stone, ruptured ovarian cyst, fibroid, ectopic . I believe that STDs are less likely to cause this as she has already been treated with Rocephin and is currently on day 3 of 7 of doxycyclin e. The patient and I had an in-depth conversati on and I educated her that she most urgently needs a CT abdomen of her pelvis. There are no current labs in the chart and she would have to either repeat labs today to get a GFR or bring in labs done at her prior doctors office. I advised the patient to go into the bathroom to see if the blood was coming from the urine or from the vagina and she reports that it is coming from the vagina. Even though she did have her period on the second and ended on the sixth she has had unprotecte d sex in the last 2 weeks which means this could possibly be an ectopic even though her urine test was negative today. A referral for the emergency room was given to the patient and directions to the [facility] patient case sent to staff barry to call her within 24 to 48 hours to follow-up on her and schedule hospital follow-up visit if needed Abnormal u terine bleeding 8505880026 9100 N93.9 Care plan as follows below. Depression screening 171 925911 Z13.31 Depression screen reviewed. Results are negative. [id number] Ibeth Jerome PA-C [place] [address] [place] [address] 06/05/2023 11:17:36 06/05/2023 13:35:18 Pain in pelvis 34867364 R10.2 Care plan as follows below pending records from the emergency room Bilateral pinguecula of eyes [id number] 53996 H11.153 Care plan as follows below.Educ ated that the eyedrops are not to be used all the time and needs to follow-up with ophthalmol ogy further eval Blood in urine 10683306 R31.9 Advised to follow-up with urology as she went to the ER and no obvious cause of the bleeding was found. She continues to be unclear with her history whether this blood is coming from her bladder or from her vagina Depression screening 171 Z13.31 Depression screen reviewed. Results are negative. [id number] RUBINA Junior [facility] [address] [place] [address] 06/23/2023 07:58:04 06/23/2023 09:58:39 Screening for malignant neoplasm of cervix 248818957 Z12.4 PAP due Venereal d isease screening 230399254 Z11.3 ERIC Abnormal u terine bleeding 7112351394 9100 N93.9 resolved since treatment for gonorrhea in ER Pain in pelvis 18120545 R10.2 resolved since treatment for gonorrhea in ER [id number] RUBINA Junior [employer] [address] [place] [address] 07/09/2023 10:58:40 07/09/2023 12:03:11 Human papilloma virus infection 745915884 B97.7 Discussed having Gardasil vaccine and informatio n given on vaccine. Can schedule appointmen t if she wants to start vaccine series. Abnormal c ervical Papanicolaou smear with human papillomavirus deoxyribonucleic acid detected 565115167 R87.619 Discussed pathophysi ology of cervical cancer, including risks of HPV. Discussed different strains of HPV, including high risk vs low risk strains. Discussed different types of cervical pathology, including pathophysi ology. Discussed recommenda tion of repeating PAP smear in 1 year. [id number] RUBINA Junior [employer] [address] [place] [address] 07/17/2023 08:07:32 07/17/2023 09:27:06 Abnormal cervical Papanicolaou smear with human papillomavirus deoxyribonucleic acid detected 287147147 R87.619 Will start Gardasil vaccine Health Concerns Section Related Observation LastModified by Organization Detai ls LastModified Time None Recorded Concern Status LastModified by Organization Details LastModified Time None Recorded Advance Directives Directive N: Payers Encounter Date Sequence Insurance Name Policy Number Policy Landa Covered Member ID Landa Member ID Guarantor Name 06/02/2023 1 [facility] (MEDICAID REPLACEMENT - HMO) Adeline Zamorano [id number] Adeline Zamorano 06/05/2023 1 [facility] (MEDICAID REPLACEMENT - HMO) Adeline Zamorano [id number] Adeline Zamorano 06/23/2023 1 [facility] (MEDICAID REPLACEMENT - HMO) Adeline Zamorano [id number] Adeline Zamorano 07/09/2023 1 [facility] (MEDICAID REPLACEMENT - HMO) Adeline Zamorano [id number] Adeline Zamorano 07/17/2023 1 [facility] (MEDICAID REPLACEMENT - HMO) Adeline Zamorano [id number] Adeline Zamorano Notes Date Note Type Note Provider Name and Address Organization Details Recorded Time 06/02/2023 text/html 28-year-old ze porter presents for a 2-day history of lower abdominal pain. She reports that she has recently been treated for gonorrhea as her partner tested positive for it. She is given an injection of Rocephin then given some doxycycline afterwards. Since then she reports having persistent lower abdominal pain. She does report having unprotected sex within the last 2 weeks. Last period was May 13 she does report some associated fevers. This morning she woke up in mild pain however now she reports is worsening pain and rates it 07/19Daflorentino Jerome PA-C [address] [place], [address], [facility] 06/02/2023 12:53:03 06/05/2023 text/html 28-year-old ze porter presents for hospital follow-up. She went to the ER after her visit this week in the office. She reports that an ultrasound was done and several things of testing however no cause for the uterine bleeding was found. She was told to follow-up with [facility] and finish her doxycycline. She reports still continuing to bleed. However it is off-and-on. She reports that she was at the ER she was bleeding all down her legs and was told to follow-up with [facility]. She denies any pain at this time but does have intermittent pain that is mostly along the left side of her abdomen. She also would like a refill on her eyedrops for her pingueculaDaisy Jerome DENICE Jerome PA-C [address] [place], [address], [facility] [employer] 06/05/2023 12:42:47 06/23/2023 text/html Here for pelvic pain and abnormal uterine bleeding from PCP. She was treated for Gonorrhea approximately 3 weeks ago in the ER after being told her partner was positive. Her symptoms have since resolved. Nasrin Gonzales MSN, CASE WORKER, FRENCH Gonzales APRN [address] [place], [address], [facility] [employer] 06/23/2023 14:05:41 07/09/2023 text/html Abnormal Pap SmearReported bypatient.Onset/Tyrone ing:pap smear performed on: (06/23/23); first abnormal pap Quality:pap smear results: (HPV+ : not 16, 18/45) Context:has not had HPV vaccine; no KIA exposure Associated Symptoms:no vaginal/vulvar pain; no vulvar lesions/growths; no vaginal discharge; no postcoital bleeding; no dyspareunia Here for PAP results. FABIANA Ren, CASE WORKER, [employer] Nasrin Gonzales APRN [address] [place], [address], [place] [facility] [employer] 07/15/2023 18:05:14 07/17/2023 text/html 28 year old feml e patient presents today for the HPV vaccine.//Joanne Madridsa Christian, CASE WORKER [address], [place], [address], [facility] [employer] 07/17/2023 14:22:15 OBGyn Episode Ob Episode Information Episode Created Date Number of Fetuses Patient Bloodtype Patient rh Status Prepregnancy Weight lbs Domestic Partner Domestic Partner Phone Father Name Custom Clothier Status 06/23/19 24 1 CLOSED Fetus Data First Name Last Name Admitted to NICU Weight (g) Sex Living Outcome Pediatric Complications Fetus ID Race Codes Race Delivery Type F Full Term [id number] Section Stephon Calculation Initial Stephon Date Initial Exam Date Initial Exam Provider Initial Ultrasound Date Last Menstrual Period Date Ultra Sound Weeks Gestation 0 Eighteen To Twenty Week Stephon Update Ultra Sound Date Fundal Height At Umbil Quickening Date Ultra Sound Latest Weeks Gestation Final Stephon Confirmed By Final Stephon Confirmed Date Final Stephon Date Ultra Sound Latest Days Gestation 0 0 Menstrual History Last Menstrual Date Menses Monthly On Bcp Conception Prior Menses Frequency Hcg Plus Date Menarche Onset Age Delivery Information Delivery Date Delivery Type Labor Anesthesia Weeks Gestation Incision Type Labor Labor Length Hrs Delivered By Post Complications Tubal Sterilization Discharge Date Comments 1 Discharge Information Feeding Method Contraceptive Method Maternal HG B and HCT Levels Ob Episode Information Episode Created Date Number of Fetuses Patient Bloodtype Patient rh Status Prepregnancy Weight lbs Domestic Partner Domestic Partner Phone Father Name Custom Clothier Status 06/23/19 24 1 CLOSED Fetus Data First Name Last Name Admitted to NICU Weight (g) Sex Living Outcome Pediatric Complications Fetus ID Race Codes Race Delivery Type M Full Term [id number] Repeat Section Stephon Calculation Initial Stephon Date Initial Exam Date Initial Exam Provider Initial Ultrasound Date Last Menstrual Period Date Ultra Sound Weeks Gestation 0 Eighteen To Twenty Week Stephon Update Ultra Sound Date Fundal Height At Umbil Quickening Date Ultra Sound Latest Weeks Gestation Final Stephon Confirmed By Final Stephon Confirmed Date Final Stephon Date Ultra Sound Latest Days Gestation 0 0 Menstrual History Last Menstrual Date Menses Monthly On Bcp Conception Prior Menses Frequency Hcg Plus Date Menarche Onset Age Delivery Information Delivery Date Delivery Type Labor Anesthesia Weeks Gestation Incision Type Labor Labor Length Hrs Delivered By Post Complications Tubal Sterilization Discharge Date Comments 5 Discharge Information Feeding Method Contraceptive Method Maternal HG B and HCT Levels
== END 2024-07-28 15:56 | disposition home or self-care (01) ==
LOC: HO.RESP 15:55
PROVIDERS: PCP Internal Medicine; Visit Provider Internal Medicine
DX: J45.20 Mild intermittent asthma, uncomplicated (principal)
CPT/HCPCS: 94010; 94640; 94727; 94729

== ENCOUNTER → 2024-07-28 15:59 | Outpatient (BNV) | payer MEDICAID, SELFPAY | PROVIDERS: PCP Internal Medicine; Visit Provider Internal Medicine Pulmonary Disease | DX: J45.20 Mild intermittent asthma, uncomplicated (principal) | CPT/HCPCS: 94060; 94727; 94729 ==

== ENCOUNTER 2024-09-16 15:51 | Emergency (ER) | payer OTHER, SELFPAY ==
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
[2024-09-16 16:27] VITALS: BP 123/79; BP 128/84; PULSE 84; PULSE 86; RESP 18; TEMP 36.6; O2SAT 96; O2SAT 99; BMI 24.1
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
--- OUTSIDE RECORDS SUMMARY | 2024-09-16 17:04 | XMS_ITS | Clinical Summary ---
Author Organization [employer] Address [address] [place] [address] Care Team Providers Care Paraffiner Name Role Phone Gladys Rao MD Primary [...] Encounters Date Type Department Care Team Description 08/13/2024 Telephone [facility] [address] [place] [phone] Gladys Rao MD No Show 07/23/2024 Population Health Risk Score Community Care [facility] ([facility] Department [address] [place] [address] [phone] Provider, Population Health Generic 06/22/2024 9:30 AM EST Office Visit [facility] [address] [place] [address] Gladys Rao MD Folliculitis depilans (Primary Dx); Mastalgia; Visual disturbance; Mild intermittent asthma without complication; Preventative health care; Encounter for immunization 06/22/2024 Travel from Last 3 Months Immunizations Name Administration [...] Care Team (Late st Contact Info) Description 10/05/2024 2:30 PM EDT Office Visit [facility] [address] [place] [address] Nubia Maddox, OD [address] [place] [address] Health Maintenance Due Date Last Done Comments Family Planning (PISQ) 2008 Hepatitis B Vaccines (1 of 3 - 19+ 3-dose series) 2012 Pneumococcal Vaccine: Pediatrics (0 to 5 Years) and At-Risk Patients (6 to 49) Years) (1 of 2 - PCV) 2012 Pap Smear 2014 Cervical Cancer Screening 2023 HPV/Cotest 2023 HPV Vaccines (2 - 3-dose SCD M series) 08/14/2023 07/17/2023 COVID-19 Vaccine (1 - 2023-2 5 season) 2024 Alcohol/Substance Use [...] Procedure Name Priority Date/Time Associated Diagnosis Comments HEPATITIS PANEL, GENERAL Routine 05/17/2024 11:21 AM EST Unprotected sexual intercourse HIV 1/2 ANTIGEN/ANTIBODY, FOURTH GENERATION W/RFL Routine 05/17/2024 11:21 AM EST Unprotected sexual intercourse from Last 3 Months or Most Recently Relevant to Health Maintenance Results * Hepatitis Panel, General (05/17/2024 11:21 AM EST) Hepatitis A IgM Nonreactive Nonreactive [facility] Comment:IgM antibodies to IRWIN V not detected; does not exclude earlyacute or recovered HAV infection. ~Hepatitis B Surface Antibody NONREACTIVE Nonreactive [facility] Comment:Nonreactive: < 8.00 mIU/mL Hepatitis B Core Antibody Nonreactive Nonreactive [facility] Hepatitis C Antibody Nonreactive Nonreactive [facility] Comment:Antibodies to HCV no t detected; does not exclude early acuteHCV infection. Hepatitis B Surface Ag Negative Negative [facility] Blood 05/17/2024 11:2 1 AM EST 05/17/2024 1:45 PM EST us Gladys Rao MD LAB BLOOD ORDERABLES Fin al Result [facility] [address] [place] [phone] * HIV-1/2 Antigen and Antibodies, Fourth Generation, with Reflexes (05/17/2024 11:21 AM EST) HIV AB/AG Nonreactive Nonreactive [facility] Comment:HIV-1 p24 Ag and/or HIV-1/HIV-2 Ab not detected.A test result that is nonreactive does not exclude thepossibility of exposure to or infection with HIV-1 and/orHIV-2. Nonreactive results in this assay for individualswith prior exposure to HIV-1 and/or HIV-2 may be due toantigen and antibody levels that are below the limit ofdetection of this assay.The [employer]Rx HIV Ag/Ab Combo assay result andsupplemental assay results should be interpreted inconjunction with the patient's clinical presentation,history and other laboratory results. If the results areinconsistent with clinical evidence, additional testing issuggested to confirm the result. Blood Venous blood specimen / Unknown 05/17/2024 11:21 AM EST 05/17/2024 1:45 PM EST Gladys Rao MD LAB BLOOD ORDERABLES Fin al Result [facility] [address] [place] [phone] [phone] from Last 3 Months or Most Recently Relevant to Health Maintenance Insurance [employer] Care Teams Paraffiner Relationship Specialty Start Date End Date Gladys Rao MD [address] [place] [phone] PCP - General Internal Medicine 05/17/24
[2024-09-16] MEDS: Ibuprofen 800 MG TABLET PO (18:50)
[2024-09-16 19:24] VITALS: BP 100/71; PULSE 71; RESP 16; TEMP 36.6; O2SAT 100
== END 2024-09-16 19:25 | disposition home or self-care (01) ==
PROVIDERS: Emergency Provider Emergency Medicine; PCP Internal Medicine
DX: S13.9XXA Sprain of joints and ligaments of unspecified parts of neck, initial encounter (principal); V43.62XA Car passenger injured in collision with other type car in traffic accident, initial encounter; R51.9 Headache, unspecified; Y93.89 Activity, other specified; Y92.414 Local residential or business street as the place of occurrence of the external cause; Y99.9 Unspecified external cause status
CPT/HCPCS: 70450; 72125; 99284

== ENCOUNTER → 2024-09-16 16:36 | Outpatient (BNV) | payer MEDICAID, SELFPAY | PROVIDERS: Emergency Provider Emergency Medicine; PCP Internal Medicine; Visit Provider Radiology Diagnostic Radiology | DX: M54.2 Cervicalgia (principal); V89.2XXA Person injured in unspecified motor-vehicle accident, traffic, initial encounter | CPT/HCPCS: 70450; 72125 ==

== ENCOUNTER 2024-11-05 13:01 | Outpatient (REF) | payer OTHER, SELFPAY ==
[2024-11-05 14:20] LABS: Bacterial Vaginosis PCR POSITIVE (Negative); Candida Group PCR DETECTED (Not Detect); Candida glab krusei PCR NOT DETECTED (Not Detect); Trichomonas vaginalis PCR NOT DETECTED (Not Detect)
[2024-11-05 14:52] LABS: CT PCR NOT DETECTED (Not Detect.); NG PCR NOT DETECTED (Not Detect.)
== END 2024-11-05 13:02 | disposition home or self-care (01) ==
LOC: HO.HHCLNP 13:01
PROVIDERS: Visit Provider Internal Medicine
DX: R30.0 Dysuria (principal); R35.0 Frequency of micturition; N89.8 Other specified noninflammatory disorders of vagina
CPT/HCPCS: 81515; 87086; 87147; 87491; 87591

== ENCOUNTER 2024-12-06 14:47 | Outpatient (REF) | payer OTHER, SELFPAY ==
--- OUTSIDE RECORDS SUMMARY | 2024-11-30 13:45 | XMS_ITS | Encounter Summary ---
Author Organization [employer] [facility] Address [address] [facility] 7[address] [place] [address] Care Team Providers Care Log Cutter Name Role Phone Gladys Rao MD Primary Care Provider + Reason for Referral * Consultation (Urgent) - Closed Specialty Diagnoses / Procedures Referred By Joshua molina Referred To Contact Reproductive Endocrinology and Infertility Diagnoses Procreative management Lisbeth Holman CNM [address] [place] [address] Phone: tel: fax: Reproductive Medicine[address] Phone: tel: fax: Referral ID Status Reason Start Date Expiration Date V isits Requested Visits Authorized [id number] Closed Specialty Services Required 11/30/2024 11/30/2025 1 1 Reason for Visit * Reason Comments pap Encounter Details Date Type Department Care Team (Latest Contact Info) Description 11/30/2024 1:45 PM EDT Procedure Visit [facility] [address] [place] [address] [phone] Lisbeth Holman CNM [address] [place], [place] [phone] Cervical cancer screening (Primary Dx); Procreative management Social History Tobacco Use Types Packs/Day Years [...] Q2 Not on file 06/10/2024 Comments No Intention Date Recorded Wants to become (finding) 11/30 Sex and Gender Information Value Date Recorded Sex Assigned at Female 05/17/2024 9:31 AM EST Legal Sex Female 12:54 PM EDT Gender Identity Female 05/17/2024 9:31 AM EST Sexual Orientation Straight 05/17/2024 9: 31 AM EST documented as of this encounter Last Filed Vital Signs Vital Sign Reading Time Taken Comments Blood Pressure 108/70 11/30/2024 1:20 PM EDT Pulse 75 11/30/2024 1:20 PM EDT Temperature 37.1 C (98.7 F) 11/30/2024 1:20 PM EDT Respiratory Rate 14 11/30/2024 1:20 PM EDT Oxygen Saturation 99% 11/30/2024 1:20 PM EDT Inhaled Oxygen Concentration - - Weight 77 kg (169 lb 12.8 oz) 11/30/2024 1:20 PM EDT Height - - Body Mass Index 26.81 11/05/2024 10:26 AM EDT documented in this encounter Progress Notes * Lisbeth Holman CNM - 11/30/2024 1:45 PM EDT Subjective Patient ID: Adeline Zamorano is a 29 y.o. female who presents for pap. She denies any vaginal urinary or breast concerns today. She reports that she was treated for bv/yeast last month, she reports symptoms have completely resolved. Visit by TERRI Wallace. I served as food and beverage analyst for exam. LMP approx 11/02/24. Menses began today. Periods are regular and painless. She is currently sexually active with AMAB partner. Denies pain or bleeding with sex. Declines STI screening today. She is seeking . However she reports after her last child she believes shehad tubal in [place], which her mother signed consent for. No records available. She reports she is interested in having an evaluation done to determine her ability to get . Not currently using contraception. She has 2 children. Denies any family hx of ovarian, breast, uterine or colon cancer. Review of Systems Constitutional: Negative for chills and fever. Gastrointestinal: Negative for abdominal pain, blood in stool, constipation, diarrhea, nausea and vomiting. Genitourinary: Negative for decreased urine volume, dyspareunia, dysuria, frequency, genital sores,hematuria, menstrual problem, pelvic pain, urgency, vaginal bleeding, vaginal discharge and vaginalpain. Objective BP 108/70 (BP Location: Left arm, Patient Position: Sitting, BP Cuff Size: Adult) Pulse 75 Temp98.7 ??F (37.1 ??C) (Oral) Resp 14 Wt 169 lb 12.8 oz (77 kg) LMP 11/30/2024 (Approximate) SpO2 99% BMI 26.81 kg/m?? Physical Exam Exam conducted with a food and beverage analyst present (Lisbeth Holman CNM). Constitutional: Appearance: Normal appearance. Chest: Comments: Breast exam declined by pt today Genitourinary: Vagina: No signs of injury and foreign body. Bleeding present. No vaginal discharge, erythema, tenderness, lesions or prolapsed vaginal rader. Cervix: Normal. No cervical motion tenderness, discharge, friability, lesion, erythema, cervical bleeding or eversion. Uterus: Normal. Not deviated, not enlarged, not fixed, not tender and no uterine prolapse. Adnexa: Right adnexa normal and left adnexa normal. Rectum: Normal. Comments: +bleeding consistent with menses. Neurological: Mental Status: She is alert. Psychiatric: Mood and Affect: Mood normal. Behavior: Behavior normal. Assessment/Plan Problem List Items Addressed This Visit None Visit Diagnoses Cervical cancer screening - Primary Relevant Orders Pap Smear Normal physical exam today, breast exam declined. Pt declines STI screening, she just had recent testing. If results are normal pap due in 5 years Procreative management Relevant Orders Referral to Infertility Today we discussed potential evaluation for fertility. Plan to refer to repro endo for HSG, pt agreeable to plan and made aware of insurance limitations. We will await evaluation with repro endo before starting PNV. Advised her to have her partner check his infertility benefits as he has health insurance from his employer. F/u prn for new or worsening conditions documented in this encounter Plan of Treatment Scheduled Orders Name Type Priority Associated Diagnoses Orde r Schedule Pap Smear Pathology and Cytology Routine Cervical cancer screening Ordered: 11/30/2024 Scheduled Referrals Name Type Priority Associated Diagnoses Order Schedule Referral to Infertility Outpatient Referral Urgent Procreative management Expected: 11/30/2024 (Approximate), Expires: 11/30/2025 documented as of this encounter Visit Diagnoses Diagnosis Cervical cancer screening- Primary Screening for malignant neoplasm of the cervix Procreative management documented in this encounter Additional Health Concerns Assessment Noted Time PHQ-9 Depression Total Score: 0 06/22/19 25 9:37 AM EST documented as of this encounter Care Teams Log Cutter Relationship Specialty Start Date End Date Gladys Rao MD [address] [place] [phone] PCP - General Internal Medicine 05/17/24 documented as of this encounter
== END 2024-12-06 14:48 | disposition home or self-care (01) ==
LOC: HO.LNP 14:47
PROVIDERS: Visit Provider Advanced Practice Midwife
DX: Z12.4 Encounter for screening for malignant neoplasm of cervix (principal); Z11.51 Encounter for screening for human papillomavirus (HPV)
CPT/HCPCS: 87626; 88175

== ENCOUNTER 2025-01-14 13:29 | Outpatient (REF) | payer MEDICAID, SELFPAY ==
--- OUTSIDE RECORDS SUMMARY | 2025-01-14 12:00 | XMS_ITS | Encounter Summary ---
Author Organization [employer] Address [address] [place] [address] Care Team Providers Care Solar Photovoltaic Electrician Name Role Phone Gladys Rao MD Primary Care Provider + Encounter Details Date Type Department Care Team (Late st Contact Info) Description 01/14/2025 12:00 PM EDT Office Visit [facility] [address] [place] [address] Gladys Rao MD [address] [place] [address] Palpitations (Primary Dx); Pelvic pain Social History Tobacco Use Types Packs/Day Years [...] Sign Reading Time Taken Comments Blood Pressure 132/74 01/14/2025 12:03 PM EDT Pulse 72 01/14/2025 12:03 PM EDT Temperature 36 C (96.8 F) 01/14/2025 12:03 PM EDT Respiratory Rate 24 01/14/2025 12:03 PM EDT Oxygen Saturation - - Inhaled Oxygen Concentration - - Weight 80.6 kg (177 lb 9.6 oz) 01/14/2025 12:03 PM EDT Height 165.1 cm (5' 5 ) 01/14/2025 12:03 PM EDT Body Mass Index 29.55 01/14/2025 12:03 PM EDT documented in this encounter Plan of Treatment Upcoming Encounters Date Type Department Care Team (Late st Contact Info) Description 03/22/2025 12:00 PM EST Office Visit [facility] [address] [place] [address] Gladys Rao MD [address] [place] [address] Scheduled Orders Name Type Priority Associated Diagnoses Orde r Schedule T3, Free Lab Routine Palpitations Expected: 01/14/2025 (Approximate), Expires: 01/14/2026 T3, Total Lab Routine Palpitations Expected: 01/14/2025 (Approximate), Expires: 01/14/2026 T4, Free Lab Routine Palpitations Expected: 01/14/2025 (Approximate), Expires: 01/14/2026 TSH Lab Routine Palpitations Expected: 01/14/2025 (Approximate), Expires: 01/14/2026 T4 (Thyroxine), Total Lab Routine Palpitations Expected: 01/14/2025 (Approximate), Expires: 01/14/2026 documented as of this encounter Procedures Procedure Name Priority Date/Time Associated Diagnosis Comments POCT , URINE Routine 01/14/2025 12:51 PM EDT Palpitations Pelvic pain POCT URINALYSIS DIPSTICK Routine 01/14/2025 12:49 PM EDT Palpitations Pelvic pain POCT GLUCOSE Routine 01/14/2025 12:48 PM EDT Palpitations Pelvic pain POCT HEMOGLOBIN Routine 01/14/2025 12:48 PM EDT Palpitations Pelvic pain documented in this encounter Results * POCT Urine (01/14/2025 12:51 PM EDT) Preg Test, Ur Negative Negative, Indeterminate, None Detected, Invalid, Specimen unsatisfactory for evaluation, Weakly Positive, 2+ QC Media Lot # [id number] Lot# Expiration Date [id number] Urine 01/14/2025 12:5 1 PM EDT Gladys Rao MD POINT OF CARE TEST ENTER /EDIT ORDERABLES Final Result * POCT Urinalysis (01/14/2025 12:49 PM EDT) Color, UA Yellow Clarity, UA Clear Glucose, UA Negative Bilirubin, UA Negative Ketones, UA Negative Spec Grav, UA 1.005 Comment:<=1.005 Blood, UA Negative Negative, None Detected pH, UA 6.0 Protein, UA Negative Urobilinogen, UA 0.2 Comment:0.2 E.U./dL Leukocytes, UA Negative Negative, Rare, Trace Nitrite, UA Negative Negative, None Detected Appearance, UA clear QC Media Lot # [id number] Lot# Expiration Date [id number] Urine 01/14/2025 12:4 9 PM EDT Gladys Rao MD POINT OF CARE TEST ENTER /EDIT ORDERABLES Final Result * POCT Hemoglobin (01/14/2025 12:48 PM EDT) Hemoglobin 14.5 12.0 - 15.0 QC Media Lot # [id number] Lot# Expiration Date Blood 01/14/2025 12:4 8 PM EDT Gladys Rao MD POINT OF CARE TEST ENTER /EDIT ORDERABLES Final Result * POCT Glucose (01/14/2025 12:48 PM EDT) Glucose Blood, POC 93 60 - 200 mg/dL QC Media Lot # [id number] Lot# Expiration Date ,930 Blood Capillary blood specimen / Unknown 01/14/2025 12:48 PM EDT Gladys Rao MD POINT OF CARE TEST ENTER /EDIT ORDERABLES Final Result documented in this encounter Visit Diagnoses Diagnosis Palpitations- Primary Pelvic pain documented in this encounter Additional Health Concerns Assessment Noted Time PHQ-9 Depression Total Score: 0 06/22/19 25 9:37 AM EST documented as of this encounter Care Teams Solar Photovoltaic Electrician Relationship Specialty Start Date End Date Gladys Rao MD [address] [place] [phone] PCP - General Internal Medicine 05/17/24 documented as of this encounter
--- OUTSIDE RECORDS SUMMARY | 2025-01-14 13:45 | XMS_ITS | Encounter Summary ---
Author Organization [employer] Address [address] [place] [address] Care Team Providers Care Roller Painter Name Role Phone Gladys Rao MD Primary Care Provider + Encounter Details Date Type Department Care Team (Latest Contact Info) Description 01/14/2025 Travel Social History Tobacco Use Types Packs/Day Years [...] Description 03/22/2025 12:00 PM EST Office Visit [facility] [address] [place] [address] Gladys Rao MD [address] [place] [address] documented as of this encounter Visit Diagnoses Not on filedocumented in this encounter Additional Health Concerns Assessment Noted Time PHQ-9 Depression Total Score: 0 06/22/19 9:37 AM EST documented as of this encounter Care Teams Roller Painter Relationship Specialty Start Date End Date Gladys Rao MD [address] [place] [phone] PCP - General Internal Medicine 05/17/24 documented as of this encounter
--- OUTSIDE RECORDS SUMMARY | 2025-01-14 13:45 | XMS_ITS | Encounter Summary ---
Author Organization [employer] Address [address] [place] [address] Care Team Providers Care Maid Cleaning Cooking Name Role Phone Gladys Rao MD Primary Care Provider + Reason for Visit * Reason Onset Date Comments Nurse Triage 01/14/2025 Encounter Details Date Type Department Care Team ([facility] st Contact Info) Description 01/14/2025 Telephone [facility] [address] [place] [address] Gladys Rao MD [address] [place] [address] Nurse Triage Social History Tobacco Use Types Packs/Day Years [...] AM EST documented as of this encounter Miscellaneous Notes * Telephone Encounter - Kiah Mayes RN - 01/14/2025 11:01 AM EDT Called pt. She states that she is a very active person. Pt. Works out a lot and last week and yesterday when she was on her way to the gym she felt like she was having a Panic attack. Pt. States she gets SOB, shaking yesterday when she was at the mall with her child yesterday she states she had to leave the mall and go outside for fresh air. Pt. States she has abdominal pain, and heart beating rap idly as well when these sx. Come on. Pt. States there is nothing traumatic or any changes in her life. Pt. Denies any depression and is not on any medications. Pt states that she does not smoke or drink and lives a healthy life but has been getting panic attacks on and off x 1 week without any known origin. Pt. Denies thinking she is but states that when she gets panicky she gets abdominal pain like period cramps. Pt. States she even took a cold shower for about an hour and it did not relieve sx. Protocol Used: Anxiety and Panic Attack (Adult) Protocol-Based Disposition: See in Office today 12 noon with PCP. Video visit offer not recorded Positive Triage Questions: * Moderate anxiety (e.g., persistent or frequent anxiety symptoms; interferes with sleep, school, or work) * Panic attacks are increasing in frequency * Patient wants to be seen * All higher-acuity triage questions were negative Care Advice Discussed: * Note to Triager - Anxiety Symptoms * Reassurance and Education - Anxiety * Anxiety - Healthy Lifestyle Tips * Avoid Caffeine * Note to Triager - How to Help a Patient During a Panic Attack * Telephone Encounter - Brianda Gallardo - 01/14/2025 10:39 AM EDT Symptom: Anxiety or Panic Attack Outcome: Schedule an urgent appointment (within 4 hours) or talk to a nurse or provider soon Reason: Anxiety keeps from normal daily activities (such as school or work) The caller accepted this outcome. Contact pt at [phone] documented in this encounter Plan of Treatment Upcoming Encounters Date Type Department Care Team (Late st Contact Info) Description 03/22/2025 12:00 PM EST Office Visit [facility] [address] [place] [address] Gladys Rao MD [address] [place] [address] documented as of this encounter Visit Diagnoses Not on filedocumented in this encounter Additional Health Concerns Assessment Noted Time PHQ-9 Depression Total Score: 0 06/22/19 9:37 AM EST documented as of this encounter Care Teams Maid Cleaning Cooking Relationship Specialty Start Date End Date Gladys Rao MD [address] [place] [phone] PCP - General Internal Medicine 05/17/24 documented as of this encounter
--- OUTSIDE RECORDS SUMMARY | 2025-01-14 13:45 | XMS_ITS | Clinical Summary ---
Author Organization [employer] Address [address] [facility] 7t [place] [address] Care Team Providers Care Ampoule Inspector Name Role Phone Gladys Rao MD Primary Care Provider + Allergies No known active allergies Medications No known medications Active Problems Problem Noted Date Diagnosed Date Urinary frequency 11/05/2024 Assessment & Plan (11/05/2024 3:27 PM EDT): UA and culture ordered today patient will be contacted with results I will treat her empirically with Macrobid 100 mg twice a day for 7 days Vaginal itching 11/05/2024 Assessment & Plan (11/05/2024 3:28 PM EDT): BV panel and CG ordered today patient will be contacted with results Mild intermittent asthma without complication Assessment & [...] sxs diary and fu with new PCP Resolved Problems Problem Noted Date Diagnosed Date Resolved Date Visual disturbance 06/22/2024 Assessment & Plan (06/22/2024 10:30 AM EST): Refer to eye clinic. Encounters Date Type Department Care Team Description 01/14/2025 12:00 PM EDT Office Visit [facility] [address] [place] [phone] Gladys Rao MD Palpitations (Primary Dx); Pelvic pain 01/14/2025 Travel 01/14/2025 Telephone [facility] [address] [place] [address] [phone] Gladys Rao MD Nurse Triage 12/20/[address] [phone] Gladys Rao MD Appointment Request 12/08/2024 Results Follow-Up [address] [address] Danielle Medrano CNM Pap Smear 11/30/2024 1:45 PM EDT Procedure Visit [facility] [address] [facility] [address] Danielle Medrano CNM Cervical cancer screening (Primary Dx); Procreative management 11/30/2024 Travel 11/29/2024 Telephone [facility] [place] [address] Danielle Medrano CNM chart prep 11/29/2024 Telephone [facility] [address] [place] [address] Gladys Rao MD Referral 11/05/2024 10:20 AM EDT Office Visit [facility] [address] Kaelyn Murillo MD Burning with urination; Vaginal itching; Urinary frequency 11/05/2024 Results Follow-Up [facility] [place] [place] [address] Kaelyn Murillo MD POCT Urinalysis, Bacterial Vaginosis, Chlamydia/N. Gonorrhoeae RNA, TMA, Urogenitial from Last 3 Months Immunizations Immunization Administration Dates Next Due Influenza, seasonal, injectable, preservative fr ee 06/22/2024 Tdap 06/22/2024 Family History Medical History Relation Name Comments Diabetes Paternal Grandfather Relation Name Status Comments Paternal Grandfather Social History Tobacco Use Types Packs/Day Years [...] 24 01/14/2025 12:03 PM EDT Oxygen Saturation 99% 11/30/2024 1:20 PM EDT Inhaled Oxygen Concentration - - Weight 80.6 kg (177 lb 9.6 oz) 01/14/2025 12:03 PM EDT Height 165.1 cm (5' 5 ) 01/14/2025 12:03 PM EDT Body Mass Index 29.55 01/14/2025 12:03 PM EDT Plan of Treatment Upcoming Encounters Date Type Department Care Team (Late st Contact Info) Description 03/22/2025 12:00 PM EST Office Visit [facility] [address] [place] [address] Gladys Rao MD [address] [place] [address] Health Maintenance Due Date Last Done Comments HPV Vaccines (1 - 3-dose series) 2008 Hepatitis B Vaccines (1 of 3 - 19+ 3-dose series) 2012 Pneumococcal Vaccine: Pediatrics (0 to 5 Years) and At-Risk Patients (6 to 49) Years (1 of 2 - PCV) 2012 COVID-19 Vaccine (1 - 2023-2 5 season) 2025 Influenza Vaccine (#1) 2025 06/22/2024 Alcohol/Substance Use Screening 06/22/2025 06/22/2024 Depression Screening 06/22/2025 06/22/2024, 06/22/2024 SDOH Screening 06/22/2025 06/22/2024 Cervical Cancer Screening 11/30/2025 Disability Screening 11/30/2025 11/30/2024 Family Planning (PISQ) 11/30/2025 11/30/2024 HPV/Cotest 11/30/2025 11/30/2024 Pap Smear 11/30/2025 11/30/2024 Tobacco Screening 01/14/2026 01/14/2025 DTaP/Tdap/Td Vaccines (2 - T d or Tdap) 06/22/2034 06/22/2024 Zoster Vaccines (1 of 2) 2043 RSV Patients and Patients Aged 60 years or older (1 - 1-dose 75+ series) 2068 HIV Screening Completed 05/17/2024 Hepatitis C Screening Completed 05/17/2024 HIB Vaccines Aged Out No longer eligi ble based on patient's age to complete this topic Hepatitis A Vaccines Aged Out No long er eligible based on patient's age to complete this topic IPV Vaccines Aged Out No longer eligi ble based on patient's age to complete this topic Meningococcal B Vaccine Aged Out No l onger eligible based on patient's age to complete [...] 12:49 PM EDT Palpitations Pelvic pain POCT HEMOGLOBIN Routine 01/14/2025 12:48 PM EDT Palpitations Pelvic pain POCT GLUCOSE Routine 01/14/2025 12:48 PM EDT Palpitations Pelvic pain PAP SMEAR Routine 11/30/2024 1:42 PM EDT Cervical cancer screening HPV DNA, LOW/HIGH RISK Routine 11/30/2024 10:11 AM EDT CULTURE, URINE, ROUTINE Routine 11/05/2024 10:58 AM EDT Burning with urination Urinary frequency POCT URINALYSIS DIPSTICK Routine 11/05/2024 10:42 AM EDT Burning with urination CHLAMYDIA/N. GONORRHOEAE RNA, TMA, UROGENITAL Routine 11/05/2024 10:30 AM EDT Vaginal itching BACTERIAL VAGINOSIS PANEL Routine 11/05/2024 10:30 AM EDT Vaginal itching HEPATITIS PANEL, GENERAL Routine 05/17/2024 11:21 AM EST Unprotected sexual intercourse HIV 1/2 ANTIGEN/ANTIBODY, FOURTH GENERATION W/RFL Routine 05/17/2024 11:21 AM EST Unprotected sexual intercourse from Last 3 Months or Most Recently Relevant to Health Maintenance Results * POCT Urine (01/14/2025 12:51 PM EDT) Preg Test, Ur Negative Negative, Indeterminate, None Detected, Invalid, Specimen unsatisfactory for evaluation, Weakly Positive, 2+ QC Media Lot # [id number] Lot# Expiration Date [id number] Urine 01/14/2025 12:5 1 PM EDT Result [facility] Gladys Rao MD POINT OF CARE TEST ENTER /EDIT ORDERABLES Final Result * POCT Urinalysis (01/14/2025 12:49 PM EDT) Only the most recent of2 resultswithin the time period is included. Color, UA Yellow Clarity, UA Clear Glucose, UA Negative Bilirubin, UA Negative Ketones, UA Negative Spec Grav, UA 1.005 Comment:<=1.005 Blood, UA Negative Negative, None Detected pH, UA 6.0 Protein, UA Negative Urobilinogen, UA 0.2 Comment:0.2 E.U./dL Leukocytes, UA Negative Negative, Rare, Trace Nitrite, UA Negative Negative, None Detected Appearance, UA clear QC Media Lot # [id number] Lot# Expiration Date , Urine 01/14/2025 12:4 9 PM EDT Result [facility] Gladys Rao MD POINT OF CARE TEST ENTER /EDIT ORDERABLES Final Result * POCT Glucose (01/14/2025 12:48 PM EDT) Glucose Blood, POC 93 60 - 200 mg/dL QC Media Lot # [id number] Lot# Expiration Date ,025 Blood Capillary blood specimen / Unknown 01/14/2025 12:48 PM EDT Result [facility] Gladys Rao MD POINT OF CARE TEST ENTER /EDIT ORDERABLES Final Result * POCT Hemoglobin (01/14/2025 12:48 PM EDT) Hemoglobin 14.5 12.0 - 15.0 QC Media Lot # [id number] Lot# Expiration Date , Blood 01/14/2025 12:4 8 PM EDT Result [facility] Gladys Rao MD POINT OF CARE TEST ENTER /EDIT ORDERABLES Final Result * Pap Smear (11/30/2024 1:42 PM EDT) Swab Cervical swab / Unknown 11/30/2024 1:42 PM EDT 12/01/2024 10:11 AM EDT [facility] - 12/08/2024 11:58 AM EDT ----- ------- Name: Adeline Brooks Age/Sex: 29/F : 1995 Unit#: [id number] Attend Dr: DANIELLE MEDRANO CNM Re12/06/24 Status: DEP REF Location: [facility] Disch: ----- ------- SPEC : [id number] RECD: 12/01/24-1011 STATUS: [place] NUM: [id number] PATY: 11/30/24-1342 [facility] DR: DANIELLE MEDRANO CNM ENTERED: 12/01/24-1020 SP TYPE: Pap [facility] OT DR: ORDERED: Pap Smear, PAP path review Interpretation General Category: Negative for intraepithelial lesion/malignancy. Adequacy: No endocervical cells seen. Interpretation: Reactive cellular changes. HPV High Risk: Positive HPV Genotyping 16: Negative HPV Genotyping 18: Negative This case was reviewed intradepartmentally. Clinical Information LMP:Unknown date Previous PAP test:Unknown date/findings Material Received ThinPrep-Cervical PAP Disclaimer As of March 03, 2024, the technical services to include automated prescreening performed by the ThinPrep Imaging System, PAP screening and HPV testing will be performed at [facility] (CLIA #[id number]), [address] [place] [address]. Testing for HPV was performed using the Deborah DAVY 6800 system. The presence of HPV in the female genital tract is associated with a number of diseases, including cervical carcinoma. The HPV DNA high risk pool tests for HPV 31, 33, 35, 39, 45, 51, 52, 56, 58, 59, 66 and 68. The testing for HPV 16 and 18 genotypes has also been performed. A positive result indicates detection of nucleic acid sequences from one or more subtypes, whereas a negative result indicates such sequences were not detected. All professional services are performed by [facility] ([address] [place], [place] [id number]; ; CLIA #[id number]). The PAP Test is a screening procedure with the inherent possibility of both false negative and false positive results. Results should be interpreted in the context of historic and current clinical findings. Reliability of the PAP Test is enhanced by performing the test on a regular repetitive basis. CONTINUED ON NEXT PAGE ----- ------- Name: Adeline Brooks Age/Sex: 29/F : 1995 Unit#: [id number] Attend Dr: DANIELLE MEDRANO CNM Re12/06/24 Status: DEP REF Location: .LNP Disch: ----- ------- SPEC : [id number] RECD: 12/01/24-101 STATUS: [place] NUM: [id number] PATY: 11/30/24-1341 [facility] DR: DANIELLE MEDRANO CNM ENTERED: 12/01/24-1020 SP TYPE: Pap Smr OTHR DR: ORDERED: Pap Smear, PAP path review ----- ------- Signed (signature on file) Ced Godinez MD 12/08/24 1158 ----- ------- END OF REPORT Danielle HALEY LAB CYTOLOGY ORDERABLES F inal Result [facility] [address] [place] [phone] * (ABNORMAL) HPV DNA, Low/High Risk (11/30/2024 10:11 AM EDT) HPV High Risk Positive(A) Negative [facility] HPV Genotype 16 Negative Negative [facility] HPV Genotype 18 Negative Negative [facility] Comment:HPV testing performe d at [facility] (CLIA#[id number]), [address] [place] [phone].Testing for HPV was performed using the Deborah DAVY 6800system. The presence of HPV in the female genital tract isassociated with a number of diseases, including cervicalcarcinoma. The HPV DNA high risk pool tests for HPV 31, 33,35, 39, 45, 51, 52, 56, 58, 59, 66 and 68. The testing forHPV 16 and 18 genotypes has also been performed. A positiveresult indicates detection of nucleic acid sequences fromone or more subtypes, whereas a negative result indicatessuch sequences were not detected. 11/30/2024 10:1 1 AM EDT 12/01/2024 10:11 AM EDT us Danielle Medrano [facility] LAB BLOOD ORDERABLES Anne l Result Performing Organization Address [facility]/ZIP Co de Phone Number [facility] [address] [place] [phone] * Culture, Urine, Routine (11/05/2024 10:58 AM EDT) Urine Urine specimen obtained by clean catch procedure / Unknown 11/05/2024 10:58 AM EDT 11/05/2024 1:02 PM EDT Comment:[facility] Narrative [facility] - 11/06/2024 2:35 PM EDT Urine Culture Report Result Urine Culture > 100,000 cfu/ml Urine Culture Mixed bacterial angela characteristic of Urine Culture urogenital contamination. Strep agalactiae (Grp B) Quant 50,000 to 100,000 cfu/mL [facility] N/A Susceptibility not routinely performed on this isolate. Specimen Source: Urine clean catch us Kaelyn Eli MD LAB MICROBIOLOGY - [facility] ORDERABLES Final Result Performing Organization Address [facility]/ZIP Co de Phone Number [facility] [address] [place] [phone] * (ABNORMAL) Bacterial Vaginosis (11/05/2024 10:30 AM EDT) TRICHOMONAS VAGINALIS DETECTION BY PCR NOT DETECTED Not Detect [facility] BACTERIAL VAGINOSIS DETECTION BY PCR POSITIVE(A) Negative [facility] Comment:The BV organism targ ets of [...] of 14. TEA GROUP DETECTION BY PCR DETECTED(A) Not Detect [facility] Tea glab krusei PCR NOT DETECTED Not Detect [facility] Swab Vaginal structure / Unknown 11/05/2024 10:30 AM EDT 11/05/2024 1:16 PM EDT Kaelyn Eli MD LAB MICROBIOLOGY - NERAL ORDERABLES Final Result [facility] [address] [place] [phone] * Chlamydia/N. Gonorrhoeae RNA, TMA, Urogenitial (11/05/2024 10:30 AM EDT) CT PCR NOT DETECTED Not Detect. [facility] Comment:A not detected test result does [...] psychologicalconsequences. NG PCR NOT DETECTED Not Detect. [facility] Comment:A not detected test result does [...] medical, social or psychologicalconsequences. Swab (Vaginal Swab) 11/05/2024 10:30 AM EDT 11/05/2024 1:16 PM EDT us Kaelyn Eli MD LAB MICROBIOLOGY - GE NERAL ORDERABLES Final Result [facility] [address] [place] [phone] * Hepatitis Panel, General (05/17/2024 11:21 AM EST) Hepatitis A IgM Nonreactive Nonreactive [facility] Comment:IgM antibodies to IRWIN V not detected; does not exclude earlyacute or recovered HAV infection. ~Hepatitis B Surface Antibody NONREACTIVE Nonreactive [facility] Comment:Nonreactive: < 8.00 mIU/mL Hepatitis B Core Antibody Nonreactive Nonreactive [facility] Hepatitis C Antibody Nonreactive Nonreactive [facility] Comment:Antibodies to HCV no t detected; does not exclude early acuteHCV infection. Hepatitis B Surface Ag Negative Negative [facility] Blood 05/17/2024 11:2 1 AM EST 05/17/2024 1:45 PM EST Gladys Rao MD LAB BLOOD ORDERABLES Fin al Result Performing Organization Address City/State/[facility] Co de Phone Number [facility] [address] [place] [phone] * HIV-1/2 Antigen and Antibodies, Fourth Generation, with Reflexes (05/17/2024 11:21 AM EST) HIV AB/AG Nonreactive Nonreactive [facility] Comment:HIV-1 p24 Ag and/or HIV-1/HIV-2 Ab not detected.A test result that is nonreactive does not exclude thepossibility of exposure to or infection with HIV-1 and/orHIV-2. Nonreactive results in this assay for individualswith prior exposure to HIV-1 and/or HIV-2 may be due toantigen and antibody levels that are below the limit ofdetection of this assay.The [employer] HIV Ag/Ab Combo assay result andsupplemental assay results should be interpreted inconjunction with the patient's clinical presentation,history and other laboratory results. If the results areinconsistent with clinical evidence, additional testing issuggested to confirm the result. Blood Venous blood specimen / Unknown 05/17/2024 11:21 AM EST 05/17/2024 1:45 PM EST Gladys Rao MD LAB BLOOD ORDERABLES Fin al Result Performing Organization Address [facility] Co de Phone Number [facility] [address] [place] [address] [phone] from Last 3 Months or Most Recently Relevant to Health Maintenance Insurance [address] [place], [place] [address] Care Teams Ampoule Inspector Relationship Specialty Start Date End Date Gladys Rao MD [address] [place] [phone] PCP - General Internal Medicine 05/17/24
[2025-01-14 16:08] LABS: MANUAL DIFF FLAG NO
[2025-01-14 16:12] LABS: Hematocrit 39.4 % (37.0-47.0); Hemoglobin 12.5 g/dl (12.0-16.0); Imm Gran Abs Auto 0.02 X10*3/uL (0.00-0.03); Imm Gran Pct Auto 0.3 % (0.0-0.4); Lymphocytes Absolute Auto 1.6 X10*3/uL (1.2-4.9); Mean Corpuscular HGB Conc 31.7 g/dl (31.0-35.0); Mean Corpuscular Hemoglobin 26.8 pg (27.0-33.0); Mean Corpuscular Volume 84.4 fL (80.0-98.0); NRBC Abs Auto 0.000 X10*3/uL (0.0-0.012); NRBC Pct Auto 0.0 /100WBC (0.0-0.2); Platelet Count 274 X10*3/uL (160-400); Red Blood Count 4.67 X10*6/uL (4.20-5.50); White Blood Count 7.1 X10*3/uL (4.8-10.8)
[2025-01-14 16:36] LABS: Alanine Aminotransferase 13 U/L (0-31); Albumin Level 4.5 g/dL (3.5-5.0); Alkaline Phosphatase 63 U/L (39-117); Anion Gap 13 (12-20); Aspartate Amino Transferase 25 U/L (5-31); Blood Urea Nitrogen 12 mg/dL (9-16); Calcium 8.7 mg/dL (8.4-10.2); Carbon Dioxide 23 mmol/L (22-29); Chloride 106 mmol/L (96-108); Cholesterol 216 mg/dL (<200); Estimated Glomerular Filt Rate > 60; HDL Cholesterol 60 mg/dL (>40); Potassium 3.9 mmol/L (3.3-5.1); Sodium 138 mmol/L (135-145); Total Protein 7.8 g/dL (6.5-8.0); Triglycerides 107 mg/dL (<150)
[2025-01-14 16:53] LABS: Free T4 (Free Thyroxine) 1.10 ng/dL (0.71-1.85); Thyroid Stimulating Hormone 1.95 uIU/mL (0.32-4.0)
[2025-01-14 17:41] LABS: Reflex LDLD? No
== END 2025-01-14 13:30 | disposition home or self-care (01) ==
LOC: HO.HHCL 13:29
PROVIDERS: PCP Internal Medicine; Visit Provider Internal Medicine
DX: Z00.00 Encounter for general adult medical examination without abnormal findings (principal); L66.2 Folliculitis decalvans; R00.2 Palpitations; N64.4 Mastodynia; H53.9 Unspecified visual disturbance
CPT/HCPCS: 36415; 80053; 80061; 82306; 84436; 84439; 84443; 84480; 84481; 85025

== ENCOUNTER 2025-04-14 18:36 | Outpatient (REF) | payer MEDICAID, SELFPAY ==
--- OUTSIDE RECORDS SUMMARY | 2025-04-14 09:20 | XMS_ITS | Encounter Summary ---
Author Organization [employer] Address [address] [address] [facility] [address] [place] [address] Care Team Providers Care Supervisor Endless Track Vehicle Name Role Phone Gladys Rao MD Primary Care Provider + Reason for Visit * Reason Comments UTI Encounter Details Date Type Department Care Team ([facility] st Contact Info) Description 04/14/2025 9:20 AM EST Office Visit [facility] [address] [place] [address] Chacho Richards MD [address] [place] [address] Acute cystitis with hematuria Social History Tobacco Use Types Packs/Day Years Used Date Smoking Tobacco: Some Days Cigarettes Passive Smoke Exposure: Never Smokeless Tobacco: Never Tobacco Cessation:Ready to Q uit: Not Asked; Counseling Given: Not Answered Comments:Pt smokes when she is having drinks (socially) Alcohol Use Standard Drinks/Week Comments Yes 0 (1 standard drink = 0.6 oz pur e alcohol) socially Depression Answer Date Recorded Patient Health Questionnaire-9 Score 2 03/22/2025 Patient Health Questionnaire-9 Score 2 03/22/2025 Last PHQ-9: Questionnaire Data Not on file 1 05/22/2024 Housing Stability Answer Date Recorded What is [...] Date Recorded Patient Health Questionnaire-2 Score 0 03/22/2025 Internet Access Answer Date Recorded Internet Access [...] Sign Reading Time Taken Comments Blood Pressure 100/65 04/14/2025 9:21 AM EST Pulse 70 04/14/2025 9:21 AM EST Temperature 36.6 C (97.9 F) 04/14/2025 9:21 AM EST Respiratory Rate 16 04/14/2025 9:21 AM EST Oxygen Saturation 98% 04/14/2025 9:21 AM EST Inhaled Oxygen Concentration - - Weight 81.2 kg (179 lb) 04/14/2025 9:21 AM EST Height - - Body Mass Index 29.79 03/22/2025 12:28 PM EST documented in this encounter Progress Notes * Chacho Richards MD - 04/14/2025 9:20 AM EST Subjective History was provided by the patient. Adeline Zamorano is a 30 y.o. female who presents to [facility] with 3-day duration of suprapubic pressure, dysuria, urinary frequency, and urgency. Denies hematuria. Denies F/C/N/V/D. This is her first time getting UTI. Admits to holding her urine at times. Objective Vitals: 04/14/25 0921 BP: 100/65 BP Location: Right arm Patient Position: Sitting BP Cuff Size: Adult Pulse: 70 Resp: 16 Temp: 97.9 ??F (36.6 ??C) TempSrc: Temporal SpO2: 98% Weight: 179 lb (81.2 kg) Physical Exam Vitals reviewed. Constitutional: General: She is not in acute distress. Appearance: Normal appearance. She is not ill-appearing, toxic-appearing or diaphoretic. HENT: Head: Normocephalic and atraumatic. Right Ear: External ear normal. Left Ear: External ear normal. Mouth/Throat: Mouth: Mucous membranes are moist. Pharynx: Oropharynx is clear. Eyes: Extraocular Movements: Extraocular movements intact. Conjunctiva/sclera: Conjunctivae normal. Pulmonary: Effort: Pulmonary effort is normal. Abdominal: General: Abdomen is flat. There is no distension. Palpations: Abdomen is soft. Tenderness: There is no abdominal tenderness. There is no right CVA tenderness, left CVA tenderness, guarding or rebound. Musculoskeletal: General: Normal range of motion. Cervical back: Neck supple. Skin: General: Skin is warm and dry. Neurological: General: No focal deficit present. Mental Status: She is alert and oriented to person, place, and time. Psychiatric: Mood and Affect: Mood normal. Behavior: Behavior normal. Office Visit on 04/14/2025 Component Date Value Ref Range Status Color, UA 04/14/2025 Yellow Final Clarity, UA 04/14/2025 Cloudy Final Glucose, UA 04/14/2025 Negative Final Bilirubin, UA 04/14/2025 Negative Final Ketones, UA 04/14/2025 Negative Final Spec Grav, UA 04/14/2025 1.015 Final Blood, UA 04/14/2025 Positive (A) Negative, None Detected Final Large pH, UA 04/14/2025 7.5 Final Protein, UA 04/14/2025 Moderate Final 100Mg Urobilinogen, UA 04/14/2025 0.2 Final Leukocytes, UA 04/14/2025 Moderate (A) Negative, Rare, Trace, 1+ (17), 2+ (35), 3+ (70), Trace (15)Final Large Nitrite, UA 04/14/2025 Negative Negative, None Detected Final Appearance, UA 04/14/2025 OK Final Adeline was seen today for uti. Diagnoses and all orders for this visit: Acute cystitis with hematuria - POCT urinalysis dipstick manually resulted (CPT 44707) - Culture, Urine, Routine - sulfamethoxazole-trimethoprim (Bactrim DS) 800-160 MG tablet; Take 1 tablet by mouth 2 times daily for 3 days. Patient with a clinical presentation of acute UTI No clinical evidence of acute abdomen or pyelonephritis Will send out UCx and start antibiotic medication (Bactrim DS 3-day course) Potential adverse effects of the medication reviewed Probiotic use discussed Allergies reviewed Discussed strategies to prevent future infections Advised to contact the clinic if no improvement of symptoms Indications for UC/ER use reviewed documented in this encounter Plan of Treatment Upcoming Encounters Date Type Department Care Team (Late st Contact Info) Description 05/27/2025 10:30 AM EST Office Visit [facility] [address] [place], [place] [phone] Gladys Rao MD [address] [place], [place] [phone] Scheduled Orders Name Type Priority Associated Diagnoses Orde r Schedule Culture, Urine, Routine Microbiology Routine Acute cystitis with hematuria Ordered: 04/14/2025 documented as of this encounter Procedures Procedure Name Priority Date/Time Associated Diagnosis Comments POCT URINALYSIS DIPSTICK Routine 04/14/2025 9:27 AM EST Acute cystitis with hematuria documented in this encounter Results * (ABNORMAL) POCT urinalysis dipstick manually resulted (CPT 59919) (04/14/2025 9:27 AM EST) Color, UA Yellow Clarity, UA Cloudy Glucose, UA Negative Bilirubin, UA Negative Ketones, UA Negative Spec Grav, UA 1.015 Blood, UA Positive(A) Negative, None Detected Comment:Large pH, UA 7.5 Protein, UA Moderate Comment:100Mg Urobilinogen, UA 0.2 Leukocytes, UA Moderate(A) Negative, Rare, Trace, 1+ (17), 2+ (35), 3+ (70), Trace (15) Comment:Large Nitrite, UA Negative Negative, None Detected Appearance, UA OK Urine (Urine, Random) 04/14/2025 9:27 AM EST Chacho Richards MD POINT OF CARE TEST ENTER/EDIT OR DERABLES Final Result documented in this encounter Visit Diagnoses Diagnosis Acute cystitis with hematuria documented in this encounter Additional Health Concerns Assessment Noted Time PHQ-9 Depression Total Score: 2 03/22/20 12:33 PM EST documented as of this encounter Care Teams Supervisor Endless Track Vehicle Relationship Specialty Start Date End Date Gladys Rao MD [address] [place] [phone] PCP - General Internal Medicine 05/17/24 documented as of this encounter
--- OUTSIDE RECORDS SUMMARY | 2025-04-14 22:18 | XMS_ITS | Encounter Summary ---
Author Organization [employer] Address [address] [facility] [address] [place] [address] Care Team Providers Care Salon Supervisor Name Role Phone Gladys Rao MD Primary Care Provider + Encounter Details Date Type Department Care Team (Latest Contact Info) Description 04/14/2025 Travel Social History Tobacco Use Types Packs/Day Years Used Date Smoking Tobacco: Some Days Cigarettes Passive Smoke Exposure: Never Smokeless Tobacco: Never Comments:Pt smokes when she is having drinks [...] Description 05/27/2025 10:30 AM EST Office Visit [facility] [address] [place] [phone] Gladys Rao MD [address] [place] [phone] documented as of this encounter Visit Diagnoses Not on filedocumented in this encounter Additional Health Concerns Assessment Noted Time PHQ-9 Depression Total Score: 2 03/22/20 12:33 PM EST documented as of this encounter Care Teams Salon Supervisor Relationship Specialty Start Date End Date Gladys Rao MD [address] [place] [phone] PCP - General Internal Medicine 05/17/24 documented as of this encounter
--- OUTSIDE RECORDS SUMMARY | 2025-04-14 22:19 | XMS_ITS | Encounter Summary ---
Author Organization [employer] Address [address] [place] [address] Care Team Providers Care Groundman/Lineman Name Role Phone Gladys Rao MD Primary Care Provider + Reason for Visit * Reason Onset Date Comments Pre Op 03/03/2025 Encounter Details Date Type Department Care Team ([facility] st Contact Info) Description 03/03/2025 Telephone [facility] MED[facility] [address] [place] [address] Gladys Rao MD [address] [place] [address] Pre Op Social History Tobacco Use Types Packs/Day Years Used Date Smoking Tobacco: Never Passive Smoke Exposure: Never Smokeless Tobacco: Never Alcohol Use Standard Drinks/Week Comments Never 0 (1 standard drink = 0.6 oz pur e alcohol) Depression Answer Date Recorded Patient Health Questionnaire-9 Score 3 01/14/2025 Patient Health Questionnaire-9 Score 3 01/14/2025 Last PHQ-9: Questionnaire Data Not on file 0 01/14/2025 Housing Stability Answer Date Recorded What is [...] Date Recorded Patient Health Questionnaire-2 Score 0 01/14/2025 Internet Access Answer Date Recorded Internet Access [...] encounter Miscellaneous Notes * Telephone Encounter - Levi Coleman - 03/03/2025 3:22 PM EDT Date of Surgery: 08/18/25 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 Naqvi Facility name: [facility] Surgeon's office number: [phone] Surgeon's office fax number: [phone] Contact name: Natasha Purvi documented in this encounter Plan of Treatment Upcoming Encounters Date Type Department Care Team (Late st Contact Info) Description 05/27/2025 10:30 AM EST Office Visit [facility] MEDICINE [address] [place] [address] Gladys Rao MD [address] [place] [address] documented as of this encounter Visit Diagnoses Not on filedocumented in this encounter Additional Health Concerns Assessment Noted Time PHQ-9 Depression Total Score: 3 01/15/20 25 1:58 PM EDT documented as of this encounter Care Teams Groundman/Lineman Relationship Specialty Start Date End Date Gladys Rao MD [address] [place] [address] PCP - General Internal Medicine 05/17/24 documented as of this encounter
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
== END 2025-04-14 18:37 | disposition home or self-care (01) ==
LOC: HO.HHCLNP 18:36
PROVIDERS: Visit Provider Family Medicine
DX: R39.9 Unspecified symptoms and signs involving the genitourinary system (principal)
CPT/HCPCS: 87086; 87088; 87186